=== PATIENT | male | born 1960 | race Caucasian/White ===

== ENCOUNTER 2018-10-30 13:43 | Inpatient (IN) | payer BC, OTHER ==
--- NOTE | 2018-10-30 14:17 | PDOC ---
History of Present Illness - General Stated Complaint: SYNCOPE History Source: Care Provider, Family - History of Present Illness Initial Comments: 10/30/18 14:10 58 yo male witih h/o prior CVA, siezure disorder, here after having episode AMS in [employer], pt with slurred speech currently. history provided by his step daughter. states she was in laundromat with him, she went to bring mother to bathroom, and when came out found him slumped in chair, leaning on person next to him. no witnessed siezure activity. now drooling, and noted slurred speech. no recent c/o feeling headache, f/c normally speech is clear. happened just prior to arrival. tPA Exclusion Checklist 0-3hr - Time Elapsed Date last known well: 10/30/18 Time last known well: 14:00 Elaspsed time: Day(s) and 1 Hour(s) and 38 Minutes - Thrombolytic Therapy Candidate Is the patient eligible for Thrombolytic Therapy?: No - Exclusion Criteria 0-3hr SBP greater than 185 or DBP greater than 110mmHg despite tx: No Recent IC/spinal surgery,head trauma or stroke w/in last 3mo: No Hx of previous IC hemorrhage, IC neoplasm, AVM or aneurysm: No Active internal bleeding: No Blding diathesis(low plt ct, inc PTT,INR>1.7 or use of NOAC): No Symptoms suggest subarachnoid hemorrhage: No CT demonstrates multilobar infarct(>1/3 cerebral hemiphere): No Arterial puncture at noncompressible site in previous 7 days: No Blood glucose concentration less than 50mg/dL (2.7mmol/L): No - Relative Exclusion Criteria 0-3h Life expectancy <1yr/severe co-morbid illness/MOBILE UNIT ASSISTANT on admit: No : No Patient/family refused: No Rapid improvement: Yes Stroke severity too mild: No Recent acute ID (w/in previous 3 months): No Seizure at onset with postictal residual neuro impairments: No Major surgery or serious trauma w/in previous 14 days: No Recent GI or hemorrhage (w/in previous 21 days): No - Ineligibility reason(s) Reasons No tPA given: See reason(s) noted above (pt exam rapidly improving. baseline disorientation and right sided weakness ( old)) NIH Stroke Scale - Last Known Well Date/Time & Onset Date Last Known Well: 10/30/18 Time Last Known Well: 14:00 - Initial Evaluation Level of consciousness: Not alert, but arousable with minimal stimulation Ask patient the month and their age: Answers one correctly (baseline doesnt know date) Ask patient to open & close eyes; make fist and let go: Obeys both correctly Best gaze (horizontal eye movement): Normal Visual field testing: No visual field loss Facial paresis (Show teeth/raise eyebrows/close eyes tight): Minor paralysis ( flattened nasolabial fold, asymmetry on smiling) (right facial droop) Motor Function: Left Arm: Normal Motor Function: Right Arm: Normal (extends arm 90 (or 45) degrees for 10 seconds without drift Motor Function: Left Leg: Normal (extends leg 30 degrees for 5 seconds without drift) Motor Function: Right Leg: Drift Limb Ataxia: No ataxia Sensory(Use pinprick test arms,legs,trunk,face/side to side): Normal Best language (Describe picture, name items, read sentences): Mild to moderate aphasia Dysarthria (read several words): Mild to moderate slurring of words Extinction and Inattention: No abnormality - Total Score NIH Stroke Scale Score: 6 Past History - Past Medical History Allergies/Adverse Reactions: Allergies Allergy/AdvReac Type Severity Reaction Status Date / Time Penicillins Allergy Severe Difficulty Verified 10/30/18 14:35 Breathing Review of Systems - Review of Systems Able to Perform ROS?: No (slurred speech, AMS) *Physical Exam - Physical Exam Comments: 10/30/18 14:12 awake , but drowsy. drooling. right facial droop noted. lungs clear bilaterlly heart rrr no mrg abd soft nt nd. ext cool clammy, nuero slurred speech, right facial droop. follows commands. answer one question correctly. arms no drift ( but righ tsided weakness when compared to left ) right leg with drift does not hit bed. speech slurred. ED Treatment Course - LABORATORY CBC & Chemistry Diagram: 10/30/18 14:25 10/30/18 14:25 - ADDITIONAL ORDERS Additional order review: Laboratory Results 10/30/18 13:57 POC Glucometer 108 10/30/18 13:57 POC Glucometer 108 - RADIOLOGY Radiology Studies Ordered: Category Date Time Status HEAD CT (STROKE) [CT] Stat CT Scan 10/30/18 13:58 Taken CHEST X-RAY PORTABLE* [RAD] Stat Radiology 10/30/18 14:00 Ordered Medical Decision Making - Medical Decision Making 10/30/18 14:14 58 yo h/o cva, siezure, here with ams, differential includes seizure, cva, syncope. sespsis. intox . plan labs ct head r/o ich cva. cxr ekg iv hydration. possible postictal states, mildly improving while in ED. glucose >100. code stroke called. pt not TPA candidate due to improving exam. h/o prior cva. 10/30/18 15:24 pt physicial exam and alertness improving in ed. still has slurred speech per family. h/o old right sided weakness per pt at bedside. pt recently moved to [place] from [facility]. Chief Substation Operator there was Dr Cordero at [facility] [phone], and nuerologist was Dr Alford) home meds simvstatin 20 lisinopril 5 keppra 1500mg BID asa 81 folic acid pt not tpa candidate as rapidly improving. concern for possible TIA vs. syncope and / seizure. pt hypotensive on EMT arrival. now bp improved leaning toward syncopal event. pt has been complaining of right hand pain. noted eccymosis right hand. will obtain right hand xray r/o fx. denies taking pain medication priro to episode. *DC/Admit/Observation/Transfer Diagnosis at time of Disposition: Syncope - Discharge Dispostion Decision to Admit order: Yes - Referrals - Patient Instructions - Post Discharge Activity
[2018-10-30] MEDS: SODIUM CHLORIDE 1,000 ML IV SCH (14:24)
[2018-10-30 14:47] LABS: BASO % 1.9 % (0-2.0); EOS % 1.5 % (0-4.5); HEMATOCRIT 30.2 % (35.4-49); HEMOGLOBIN 9.8 GM/dL (11.7-16.9); LYMPH % 17.2 % (8-40); MCH 25.7 pg (25.7-33.7); MCHC 32.4 g/dl (32.0-35.9); MEAN CELL VOLUME 79.4 fl (80-96); MEAN PLT VOLUME 7.4 fl (7.5-11.1); MONO % 6.9 % (3.8-10.2); NEUT % 72.5 % (42.8-82.8); PLATELET COUNT 258 K/MM3 (134-434); RBC 3.81 M/mm3 (4.00-5.60); WHITE BLOOD COUNT 5.3 K/mm3 (4.0-10.0)
[2018-10-30 14:53] LABS: INR 1.14 (0.83-1.09); PROTHROMBIN TIME (PATIENT) 13.5 SEC (9.7-13.0)
[2018-10-30 14:57] LABS: ALBUMIN 3.2 g/dl (3.4-5.0); ALK PHOS 54 U/L (45-117); ANION GAP 8 MMOL/L (8-16); BILIRUBIN,TOTAL 0.2 mg/dL (0.2-1); BLOOD UREA NITROGEN 9 mg/dL (7-18); CALCIUM 8.6 mg/dL (8.5-10.1); CHLORIDE 105 mmol/L (98-107); CHOLESTEROL 119 mg/dL (50-200); CO2 23 mmol/L (21-32); CREATININE 0.9 mg/dL (0.55-1.3); GLUCOSE,RANDOM 103 mg/dL (74-106); HDL CHOLESTEROL 42 mg/dL (40-60); SGOT/AST 18 U/L (15-37); SGPT/ALT 12 U/L (13-61); SODIUM 136 mmol/L (136-145); TOT PROT 6.8 g/dl (6.4-8.2); TRIGLYCERIDES 66 mg/dL (0-150)
--- NOTE | 2018-10-30 15:00 | EKG ---
Test Reason : Blood Pressure : / mmHG Vent. Rate : 083 BPM Atrial Rate : 083 BPM P-R Int : 238 ms QRS Dur : 086 ms QT Int : 408 ms P-R-T Axes : 002 015 010 degrees QTc Int : 479 ms Atrial-paced rhythm with prolonged AV conduction INFERIOR INFARCT , AGE UNDETERMINED ABNORMAL ECG NO PREVIOUS ECGS AVAILABLE Confirmed by BARBARA BURGOS MD ([id number]) on 10/30/2018 2:59:58 PM Referred By: Confirmed By:BARBARA BURGOS MD
[2018-10-30] MEDS ORDERED: SODIUM CHLORIDE 0.9% 1000 ML INFUS.BAG IV ONE (15:30)
--- NOTE | 2018-10-30 15:58 | HP ---
CHIEF COMPLAINT:AMS/Slurred speech PCP: [facility] HPI is from ER staff as patient is unable to give at this time and unable to reach family HISTORY OF PRESENT ILLNESS: 58yo M with PMH seizure with residual R sided weakness, s/p PPM HTN and seizure presented to the ER after he was found slumped over in a chair at the [facility]. he was with his step-daughter who left to take her mother to the bathroom and when she returned he was slumped over in the chair. Initially unresponsive and then became alert. +drooling with slurred speech. no seizure activity noted pt is unclear why he is in the hospital and can not recall the last thing he remembers. states he does not think he took his medications today. unaware of his medical problems ER course was notable for: (1)NIHH 4 (2)Head CT (3) Recent Travel:just moved from [place] PAST MEDICAL HISTORY:as stated above PAST SURGICAL HISTORY:unknown Social History:unknown Smoking: Alcohol: Drugs: Family History:unknown Allergies Penicillins Allergy (Severe, Verified 10/30/18 14:35) Difficulty Breathing HOME MEDICATIONS: REVIEW OF SYSTEMS CONSTITUTIONAL: Absent: fever, chills, diaphoresis, generalized weakness, malaise, loss of appetite, weight change HEENT: Absent: rhinorrhea, nasal congestion, throat pain, throat swelling, difficulty swallowing, mouth swelling, ear pain, eye pain, visual changes CARDIOVASCULAR: Absent: chest pain, syncope, palpitations, irregular heart rate, lightheadedness , peripheral edema RESPIRATORY: Absent: cough, shortness of breath, dyspnea with exertion, orthopnea, wheezing, stridor, hemoptysis GASTROINTESTINAL: Absent: abdominal pain, abdominal distension, nausea, vomiting, diarrhea, constipation, melena, hematochezia GENITOURINARY: Absent: dysuria, frequency, urgency, hesitancy, hematuria, flank pain, genital pain MUSCULOSKELETAL: Absent: myalgia, arthralgia, joint swelling, back pain, neck pain SKIN: Absent: rash, itching, pallor HEMATOLOGIC/IMMUNOLOGIC: Absent: easy bleeding, easy bruising, lymphadenopathy, frequent infections ENDOCRINE: Absent: unexplained weight gain, unexplained weight loss, heat intolerance, cold intolerance NEUROLOGIC: mental status changes Absent: headache, focal weakness or paresthesias, dizziness, unsteady gait, seizure,, bladder or bowel incontinence PSYCHIATRIC: Absent: anxiety, depression, suicidal or homicidal ideation, hallucinations. PHYSICAL EXAMINATION Vital Signs - 24 hr 10/30/18 10/30/18 10/30/18 13:45 14:00 14:35 Temperature 97.1 F L Pulse Rate 73 Pulse Rate [ 84 Right] Respiratory 18 18 Rate Blood Pressure 92/71 Blood Pressure 104/72 [Right Arm] O2 Sat by Pulse 98 98 98 Oximetry (%) GENERAL: A&O x2 (self and location), in no acute distress. HEAD: Normal with no signs of trauma. EYES: Pupils equal, round and reactive to light, extraocular movements intact, sclera anicteric, conjunctiva clear. No lid lag. EARS, NOSE, THROAT: Ears normal, nares patent, oropharynx clear without exudates. Moist mucous membranes. poor oral dentition NECK: Normal range of motion, supple without lymphadenopathy, JVD, or masses. LUNGS: Breath sounds equal, clear to auscultation bilaterally. No wheezes, and no crackles. No accessory muscle use. HEART: Regular rate and rhythm, normal S1 and S2 without murmur, rub or gallop. ABDOMEN: Soft, nontender, not distended, normoactive bowel sounds, no guarding, no rebound, no masses. No hepatomegaly or splenomegaly. MUSCULOSKELETAL: Normal range of motion at all joints. No bony deformities or tenderness. No CVA tenderness. UPPER EXTREMITIES: 2+ pulses, warm, well-perfused. No cyanosis. No clubbing. No peripheral edema. LOWER EXTREMITIES: 2+ pulses, warm, well-perfused. No calf tenderness. No peripheral edema. NEUROLOGICAL: Cranial nerves II-XII intact. +asymmetric smile with nasolabrial flattening. slurred speech strength 4/5 RUE 5/5 all remaining extremities sensation grossly intact. neg pronator drift/dysmetria. gait testing deferred PSYCHIATRIC: Cooperative. Good eye contact. Appropriate mood and affect. SKIN: Warm, dry, normal turgor, no rashes or lesions noted, normal capillary refill. Laboratory Results - last 24 hr 10/30/18 10/30/18 10/30/18 13:57 14:25 14:25 WBC 5.3 RBC 3.81 L Hgb 9.8 L Hct 30.2 L MCV 79.4 L MCH 25.7 MCHC 32.4 RDW 19.0 H Plt Count 258 MPV 7.4 L Absolute Neuts (auto) 3.9 Neutrophils % 72.5 Lymphocytes % 17.2 Monocytes % 6.9 Eosinophils % 1.5 Basophils % 1.9 Nucleated RBC % 0 PT with INR 13.50 H INR 1.14 H Sodium Potassium Chloride Carbon Dioxide Anion Gap BUN Creatinine Creat Clearance w eGFR POC Glucometer 108 Random Glucose Calcium Total Bilirubin AST ALT Alkaline Phosphatase Creatine Kinase Troponin I Total Protein Albumin Triglycerides Cholesterol Total LDL Cholesterol HDL Cholesterol 10/30/18 14:25 WBC RBC Hgb Hct MCV MCH MCHC RDW Plt Count MPV Absolute Neuts (auto) Neutrophils % Lymphocytes % Monocytes % Eosinophils % Basophils % Nucleated RBC % PT with INR INR Sodium 136 Potassium 5.0 Chloride 105 Carbon Dioxide 23 Anion Gap 8 BUN 9 Creatinine 0.9 Creat Clearance w eGFR > 60 POC Glucometer Random Glucose 103 Calcium 8.6 Total Bilirubin 0.2 AST 18 ALT 12 L Alkaline Phosphatase 54 Creatine Kinase 62 Troponin I < 0.02 Total Protein 6.8 Albumin 3.2 L Triglycerides 66 Cholesterol 119 Total LDL Cholesterol 65 HDL Cholesterol 42 ASSESSMENT/PLAN: 58yo M with PMH seizure with residual R sided weakness, HTN and seizure presented to the ER after he was found slumped over in a chair at the [facility]. Julia aBshir initiated in the ER with [facility] 4. Not a TPA candidate as symptoms resolved prior to arrival to the ER 1. Acute metabolic toxic encephalopathy- R/o CVA vs syncope vs seizure. unclear at this time until collateral information can be obtained. Julia bashir called and workup to be completed. unable to obtain MRI due to PPM (unclear indication). repeat Head CT at 24H, echo, carotid doppler. NPO until cleared by swallow therapist, Neuro consulted, was on asa at home, will need to verify if he was taking. switched low dose statin to high intensity. cont keppra. fall and seziure precautions. PT eval. may require SASHA 2. Microcytic anemia- no baseline available. will repeat in AM, check iron studies. no signs of bleeding. no indication for transfusions at this time 3. HTN- was hypotensive on arrival SBP 60's. currently normotensive. IVF given in the ER. will hold antihypertensives at this time 4. s/p PPM- unclear etiology 5. DVT ppx- lovenox 6. Called placed out to step-daughter for collateral information with no response, will attempt later. [phone] Visit type - Emergency Visit Emergency Visit: Yes Care time: The patient presented to the Emergency Department on the above date and was hospitalized for further evaluation of their emergent condition. - New Patient This patient is new to me today: Yes Date on this admission: 10/30/18 - Critical Care Critical Care patient: No
[2018-10-30] MEDS: ROSUVASTATIN CA 20 MG TABLET (FP) PO SCH (23:52)
[2018-10-31 01:21] VITALS: BMI 23.8
[2018-10-31] MEDS: ENOXAPARIN NA (PORCINE) 40 MG/0.4 ML DISP.SYRIN SQ SCH (09:32)
[2018-10-31 09:59] LABS: BASO % 1.4 % (0-2.0); EOS % 2.1 % (0-4.5); HEMATOCRIT 30.8 % (35.4-49); HEMOGLOBIN 10.3 GM/dL (11.7-16.9); LYMPH % 20.1 % (8-40); MCH 26.5 pg (25.7-33.7); MCHC 33.4 g/dl (32.0-35.9); MEAN CELL VOLUME 79.5 fl (80-96); MEAN PLT VOLUME 8.1 fl (7.5-11.1); MONO % 8.5 % (3.8-10.2); NEUT % 67.9 % (42.8-82.8); PLATELET COUNT 267 K/MM3 (134-434); RBC 3.87 M/mm3 (4.00-5.60); RDW 18.4 % (11.9-15.9); WHITE BLOOD COUNT 3.9 K/mm3 (4.0-10.0)
--- NOTE | 2018-10-31 10:26 | CONSULT ---
Consult - text type - Consultation Consultation Note: Neurology CHIEF COMPLAINT:AMS/Slurred speech PCP: [facility] HISTORY OF PRESENT ILLNESS: 58yo M with PMH seizure with residual R sided weakness, s/p PPM, HTN and seizure presented to the ER after he was found slumped over in a chair at the [facility] on day of admission. He was with his step-daughter who left to take her mother to the bathroom and when she returned, he was slumped over in the chair. Initially, patient was unresponsive and then became alert with symptoms of slurred speech and drooling. No seizure activity was noted. Code Bashir initiated in the ER with [facility] 4. Contact by ER. Patient was not a TPA candidate as symptoms resolved prior to arrival to the ER. Initially, patient unclear why he was in the hospital and can not recall the last thing he remembers. He states he did not think he took his medications on day of admission and was unaware of his medical problems. CT head was completed and did not show acute changes. He was admitted for futher eval, repeat CT head for this AM pending. No new deficits overnight. Recent Travel:just moved from [place] PAST MEDICAL HISTORY:as stated above PAST SURGICAL HISTORY:unknown Social History:unknown Smoking: Alcohol: Drugs: Family History:unknown Allergies Penicillins Allergy (Severe, Verified 10/30/18 14:35) Difficulty Breathing Active Medications Enoxaparin Sodium (Lovenox -) 40 mg SQ DAILY [facility] Last Admin: 10/31/18 09:32 Dose: 40 mg Sodium Chloride (Normal Saline -) 1,000 mls @ 42 mls/hr IV ASDIR [facility] Last Admin: 10/30/18 14:24 Dose: 42 mls/hr Rosuvastatin Calcium (Crestor -) 20 mg PO HS [facility] Last Admin: 10/30/18 23:52 Dose: Not Given REVIEW OF SYSTEMS CONSTITUTIONAL: Absent: fever, chills, diaphoresis, generalized weakness, malaise, loss of appetite, weight change HEENT: Absent: rhinorrhea, nasal congestion, throat pain, throat swelling, difficulty swallowing, mouth swelling, ear pain, eye pain, visual changes CARDIOVASCULAR: Absent: chest pain, syncope, palpitations, irregular heart rate, lightheadedness , peripheral edema RESPIRATORY: Absent: cough, shortness of breath, dyspnea with exertion, orthopnea, wheezing, stridor, hemoptysis GASTROINTESTINAL: Absent: abdominal pain, abdominal distension, nausea, vomiting, diarrhea, constipation, melena, hematochezia GENITOURINARY: Absent: dysuria, frequency, urgency, hesitancy, hematuria, flank pain, genital pain MUSCULOSKELETAL: Absent: myalgia, arthralgia, joint swelling, back pain, neck pain SKIN: Absent: rash, itching, pallor HEMATOLOGIC/IMMUNOLOGIC: Absent: easy bleeding, easy bruising, lymphadenopathy, frequent infections ENDOCRINE: Absent: unexplained weight gain, unexplained weight loss, heat intolerance, cold intolerance NEUROLOGIC: mental status changes Absent: headache, focal weakness or paresthesias, dizziness, unsteady gait, seizure,, bladder or bowel incontinence PSYCHIATRIC: Absent: anxiety, depression, suicidal or homicidal ideation, hallucinations. PHYSICAL EXAMINATION Vital Signs Temperature 98.2 F 10/31/18 08:59 Pulse Rate 79 10/31/18 08:59 Respiratory Rate 16 10/31/18 08:59 Blood Pressure 136/87 10/31/18 08:59 O2 Sat by Pulse Oximetry (%) 98 10/30/18 23:00 GENERAL: A&O x2 (self and location), in no acute distress. HEAD: Normal with no signs of trauma. EYES: Pupils equal, round and reactive to light, extraocular movements intact, sclera anicteric, conjunctiva clear. No lid lag. EARS, NOSE, THROAT: Ears normal, nares patent, oropharynx clear without exudates. Moist mucous membranes. poor oral dentition NECK: Normal range of motion, supple without lymphadenopathy, JVD, or masses. LUNGS: Breath sounds equal, clear to auscultation bilaterally. No wheezes, and no crackles. No accessory muscle use. HEART: Regular rate and rhythm, normal S1 and S2 without murmur, rub or gallop. ABDOMEN: Soft, nontender, not distended, normoactive bowel sounds, no guarding, no rebound, no masses. No hepatomegaly or splenomegaly. MUSCULOSKELETAL: Normal range of motion at all joints. No bony deformities or tenderness. No CVA tenderness. UPPER EXTREMITIES: 2+ pulses, warm, well-perfused. No cyanosis. No clubbing. No peripheral edema. LOWER EXTREMITIES: 2+ pulses, warm, well-perfused. No calf tenderness. No peripheral edema. NEUROLOGICAL: Cranial nerves II-XII intact. +asymmetric smile with nasolabrial flattening. slurred speech strength 4/5 RUE 5/5 all remaining extremities sensation grossly intact. neg pronator drift/dysmetria. gait testing deferred PSYCHIATRIC: Cooperative. Good eye contact. Appropriate mood and affect. SKIN: Warm, dry, normal turgor, no rashes or lesions noted, normal capillary refill. CBCD WBC 3.9 K/mm3 (4.0-10.0) L 10/31/18 06:15 RBC 3.87 M/mm3 (4.00-5.60) L 10/31/18 06:15 Hgb 10.3 GM/dL (11.7-16.9) L 10/31/18 06:15 Hct 30.8 % (35.4-49) L 10/31/18 06:15 MCV 79.5 fl (80-96) L 10/31/18 06:15 MCHC 33.4 g/dl (32.0-35.9) 10/31/18 06:15 RDW 18.4 % (11.9-15.9) H 10/31/18 06:15 Plt Count 267 K/MM3 (134-434) 10/31/18 06:15 MPV 8.1 fl (7.5-11.1) 10/31/18 06:15 CMP Sodium 136 mmol/L (136-145) 10/30/18 14:25 Potassium 5.0 mmol/L (3.5-5.1) 10/30/18 14:25 Chloride 105 mmol/L (98-107) 10/30/18 14:25 Carbon Dioxide 23 mmol/L (21-32) 10/30/18 14:25 Anion Gap 8 MMOL/L (8-16) 10/30/18 14:25 BUN 9 mg/dL (7-18) 10/30/18 14:25 Creatinine 0.9 mg/dL (0.55-1.3) 10/30/18 14:25 Creat Clearance w eGFR > 60 (>60) 10/30/18 14:25 Random Glucose 103 mg/dL (74-106) 10/30/18 14:25 Calcium 8.6 mg/dL (8.5-10.1) 10/30/18 14:25 Total Bilirubin 0.2 mg/dL (0.2-1) 10/30/18 14:25 AST 18 U/L (15-37) 10/30/18 14:25 ALT 12 U/L (13-61) L 10/30/18 14:25 Alkaline Phosphatase 54 U/L (45-117) 10/30/18 14:25 Total Protein 6.8 g/dl (6.4-8.2) 10/30/18 14:25 Albumin 3.2 g/dl (3.4-5.0) L 10/30/18 14:25 CARDIAC ENZYMES Creatine Kinase 29 U/L (26-308) 10/30/18 21:07 Troponin I < 0.02 ng/ml (0.00-0.05) 10/30/18 21:[address] - pending Carotid Doppler - completed, results pending ASSESSMENT/PLAN: 58yo M with PMH seizure with residual R sided weakness, s/p PPM, HTN and seizure presented to the ER after he was found slumped over in a chair at the [facility] on day of admission. He was with his step-daughter who left to take her mother to the bathroom and when she returned, he was slumped over in the chair. Initially, patient was unresponsive and then became alert with symptoms of slurred speech and drooling. No seizure activity was noted. Julia Bashir initiated in the ER with [facility] 4. Contact by ER. Patient was not a TPA candidate as symptoms resolved prior to arrival to the ER. Initially, patient unclear why he was in the hospital and can not recall the last thing he remembers. He states he did not think he took his medications on day of admission and was unaware of his medical problems. CT head was completed and did not show acute changes. He was admitted for futher eval, repeat CT head for this AM pending. No new deficits overnight. Carotid doppler completed, awaiting offical report. On tele monitoring, hydration recommended. Monitor blood preussre, maintain normotensive range. Can continue home meds. DVT ppx.
[2018-10-31 10:52] LABS: ALK PHOS 55 U/L (45-117); ANION GAP 10 MMOL/L (8-16); BILIRUBIN,TOTAL 0.3 mg/dL (0.2-1); BLOOD UREA NITROGEN 9 mg/dL (7-18); CALCIUM 8.3 mg/dL (8.5-10.1); CHLORIDE 108 mmol/L (98-107); CO2 21 mmol/L (21-32); CREATININE 0.6 mg/dL (0.55-1.3); GLUCOSE,RANDOM 79 mg/dL (74-106); POTASSIUM 4.4 mmol/L (3.5-5.1); SGOT/AST 11 U/L (15-37); SGPT/ALT 11 U/L (13-61); SODIUM 138 mmol/L (136-145); TOT PROT 6.6 g/dl (6.4-8.2)
[2018-10-31] MEDS: SODIUM CHLORIDE 1,000 ML IV SCH (14:49)
--- NOTE | 2018-10-31 15:52 | PN ---
Physical Exam: SUBJECTIVE: Patient seen and examined he is better and alert and awake no more weakness or any seizure disorder OBJECTIVE: Vital Signs Period Temp Pulse Resp BP Sys/Evangelista Pulse Ox Last 24 Hr 97.4 F-98.5 F 72-89 16-20 131-158/78-93 98-100 GENERAL: The patient is awake, alert, and fully oriented, in no acute distress. HEAD: Normal with no signs of trauma. EYES: PERRL, extraocular movements intact, sclera anicteric, conjunctiva clear. No ptosis. ENT: Ears normal, nares patent, oropharynx clear without exudates, moist mucous membranes. NECK: Trachea midline, full range of motion, supple. LUNGS: Breath sounds equal, clear to auscultation bilaterally, no wheezes, no crackles, no accessory muscle use. HEART: Regular rate and rhythm, S1, S2 without murmur, rub or gallop. ABDOMEN: Soft, nontender, nondistended, normoactive bowel sounds, no guarding, no rebound, no hepatosplenomegaly, no masses. EXTREMITIES: 2+ pulses, warm, well-perfused, no edema. NEUROLOGICAL: Cranial nerves II through XII grossly intact. Normal speech, gait not observed.But has minimal rt sided weakness if any PSYCH: Normal mood, normal affect. SKIN: Warm, dry, normal turgor, no rashes or lesions noted Laboratory Results - last 24 hr 10/30/18 10/31/18 10/31/18 21:07 06:15 06:15 WBC 3.9 L RBC 3.87 L Hgb 10.3 L Hct 30.8 L MCV 79.5 L MCH 26.5 MCHC 33.4 RDW 18.4 H Plt Count 267 MPV 8.1 Absolute Neuts (auto) 2.7 Neutrophils % 67.9 Lymphocytes % 20.1 Monocytes % 8.5 Eosinophils % 2.1 Basophils % 1.4 Nucleated RBC % 0 Sodium 138 Potassium 4.4 Chloride 108 H Carbon Dioxide 21 Anion Gap 10 BUN 9 Creatinine 0.6 Creat Clearance w eGFR > 60 Random Glucose 79 Calcium 8.3 L Ferritin 13.3 Total Bilirubin 0.3 AST 11 L ALT 11 L Alkaline Phosphatase 55 Creatine Kinase 29 Troponin I < 0.02 Total Protein 6.6 Albumin 3.0 L Active Medications Generic Name Dose Route Start Last Admin Trade Name Freq PRN Reason Stop Dose Admin Enoxaparin Sodium 40 mg 10/31/18 10:00 10/31/18 09:32 Lovenox - SQ 40 mg DAILY [facility] Administration Sodium Chloride 1,000 mls @ 42 mls/hr 10/30/18 14:00 10/30/18 14:24 Normal Saline - IV 42 mls/hr ASDIR [facility] Administration Rosuvastatin Calcium 20 mg 10/30/18 22:00 10/30/18 23:52 Crestor - PO Not Given HS [facility] ASSESSMENT/PLAN: 58yo M with PMH HTN and seizure presented to the ER after he was found slumped over in a chair at the [facility]. 1. Acute metabolic toxic encephalopathy- R/o CVA vs syncope vs seizure. seen by neuro recomended to have ct head repeat and carotid sonogram and done and results are pending. He is much improved and he passed the bed side swallowing and will start on regular diet. 2. Microcytic anemia- no baseline available. will repeat in AM, check iron studies. no signs of bleeding. no indication for transfusions at this time 3. HTN- blood pressure is better now 4. s/p PPM- 5. DVT ppx- lovenox 6. Called step-daughter and for collateral information that he has just moved here from [place] and reason for pacemaker is unknown to them and patient Visit type - Emergency Visit Emergency Visit: Yes ED Registration Date: 10/30/18 Care time: The patient presented to the Emergency Department on the above date and was hospitalized for further evaluation of their emergent condition. - New Patient This patient is new to me today: Yes Date on this admission: 10/31/18 - Critical Care Critical Care patient: No - Discharge Referral Referred to [facility] No
[2018-10-31] MEDS: ROSUVASTATIN CA 20 MG TABLET (FP) PO SCH (21:06)
[2018-11-01] MEDS: SODIUM CHLORIDE 1,000 ML IV SCH ×2 (03:28→21:15)
[2018-11-01 08:08] LABS: SERUM IRON SATURATION 8 % (15-55); TOTAL IRON BINDING CAPACITY 315 ug/dL (250-450); UIBC 290 ug/dL (111-343)
[2018-11-01] MEDS: ENOXAPARIN NA (PORCINE) 40 MG/0.4 ML DISP.SYRIN SQ SCH (10:04)
--- NOTE | 2018-11-01 10:47 | PN ---
Progress Note (short form) - Note Progress Note: Neurology CHIEF COMPLAINT:AMS/Slurred speech PCP: [facility] HISTORY OF PRESENT ILLNESS: 58yo M with PMH seizure with residual R sided weakness, s/p PPM, HTN and seizure presented to the ER after he was found slumped over in a chair at the [facility] on day of admission. He was with his step-daughter who left to take her mother to the bathroom and when she returned, he was slumped over in the chair. Initially, patient was unresponsive and then became alert with symptoms of slurred speech and drooling. No seizure activity was noted. Code Bashir initiated in the ER with [facility] 4. Contact by ER. Patient was not a TPA candidate as symptoms resolved prior to arrival to the ER. Initially, patient unclear why he was in the hospital and can not recall the last thing he remembers. He stated he did not think he took his medications on day of admission and was unaware of his medical problems. CT head was completed and did not show acute changes. He was admitted for further eval, repeat CT head completed on 10/31/18, no acute changes noted but chronic infarcts. Carotid doppler reviewed and no high grade evidence of HD significant stenosis noted. No new deficits overnight. On statin but not on ASA for unclear reason. Based on imaging would recommend at least ASA 81mg unless contraindications. Allergies Penicillins Allergy (Severe, Verified 10/30/18 14:35) Difficulty Breathing Active Medications Enoxaparin Sodium (Lovenox -) 40 mg SQ DAILY [facility] Last Admin: 11/01/18 10:04 Dose: 40 mg Sodium Chloride (Normal Saline -) 1,000 mls @ 42 mls/hr IV ASDIR [facility] Last Admin: 11/01/18 03:28 Dose: 42 mls/hr Rosuvastatin Calcium (Crestor -) 20 mg PO HS [facility] Last Admin: 10/31/18 21:06 Dose: 20 mg PHYSICAL EXAMINATION Vital Signs Temperature 98.5 F 11/01/18 10:06 Pulse Rate 79 11/01/18 10:06 Respiratory Rate 18 11/01/18 10:06 Blood Pressure 110/59 L 11/01/18 10:06 O2 Sat by Pulse Oximetry (%) 98 10/31/18 19:51 GENERAL: A&O x2 (self and location), in no acute distress. HEAD: Normal with no signs of trauma. EYES: Pupils equal, round and reactive to light, extraocular movements intact, sclera anicteric, conjunctiva clear. No lid lag. EARS, NOSE, THROAT: Ears normal, nares patent, oropharynx clear without exudates. Moist mucous membranes. poor oral dentition NECK: Normal range of motion, supple without lymphadenopathy, JVD, or masses. LUNGS: Breath sounds equal, clear to auscultation bilaterally. No wheezes, and no crackles. No accessory muscle use. HEART: Regular rate and rhythm, normal S1 and S2 without murmur, rub or gallop. ABDOMEN: Soft, nontender, not distended, normoactive bowel sounds, no guarding, no rebound, no masses. No hepatomegaly or splenomegaly. MUSCULOSKELETAL: Normal range of motion at all joints. No bony deformities or tenderness. No CVA tenderness. UPPER EXTREMITIES: 2+ pulses, warm, well-perfused. No cyanosis. No clubbing. No peripheral edema. LOWER EXTREMITIES: 2+ pulses, warm, well-perfused. No calf tenderness. No peripheral edema. NEUROLOGICAL: Cranial nerves II-XII intact. +asymmetric smile with nasolabrial flattening. slurred speech strength 4/5 RUE 5/5 all remaining extremities sensation grossly intact. neg pronator drift/dysmetria. gait testing deferred PSYCHIATRIC: Cooperative. Good eye contact. Appropriate mood and affect. SKIN: Warm, dry, normal turgor, no rashes or lesions noted, normal capillary refill. CBCD WBC 3.9 K/mm3 (4.0-10.0) L 10/31/18 06:15 RBC 3.87 M/mm3 (4.00-5.60) L 10/31/18 06:15 Hgb 10.3 GM/dL (11.7-16.9) L 10/31/18 06:15 Hct 30.8 % (35.4-49) L 10/31/18 06:15 MCV 79.5 fl (80-96) L 10/31/18 06:15 MCHC 33.4 g/dl (32.0-35.9) 10/31/18 06:15 RDW 18.4 % (11.9-15.9) H 10/31/18 06:15 Plt Count 267 K/MM3 (134-434) 10/31/18 06:15 MPV 8.1 fl (7.5-11.1) 10/31/18 06:15 CMP Sodium 138 mmol/L (136-145) 10/31/18 06:15 Potassium 4.4 mmol/L (3.5-5.1) 10/31/18 06:15 Chloride 108 mmol/L (98-107) H 10/31/18 06:15 Carbon Dioxide 21 mmol/L (21-32) 10/31/18 06:15 Anion Gap 10 MMOL/L (8-16) 10/31/18 06:15 BUN 9 mg/dL (7-18) 10/31/18 06:15 Creatinine 0.6 mg/dL (0.55-1.3) 10/31/18 06:15 Creat Clearance w eGFR > 60 (>60) 10/31/18 06:15 Random Glucose 79 mg/dL (74-106) 10/31/18 06:15 Calcium 8.3 mg/dL (8.5-10.1) L 10/31/18 06:15 Total Bilirubin 0.3 mg/dL (0.2-1) 10/31/18 06:15 AST 11 U/L (15-37) L 10/31/18 06:15 ALT 11 U/L (13-61) L 10/31/18 06:15 Alkaline Phosphatase 55 U/L (45-117) 10/31/18 06:15 Total Protein 6.6 g/dl (6.4-8.2) 10/31/18 06:15 Albumin 3.0 g/dl (3.4-5.0) L 10/31/18 06:15 CARDIAC ENZYMES Creatine Kinase 29 U/L (26-308) 10/30/18 21:07 Troponin I < 0.02 ng/ml (0.00-0.05) 10/30/18 21:[address] (initial) - completed, reviewed Carotid Doppler - completed Head CT (repeat) - completed ASSESSMENT/PLAN: 58yo M with PMH seizure with residual R sided weakness, s/p PPM, HTN and seizure presented to the ER after he was found slumped over in a chair at the [facility] on day of admission. He was with his step-daughter who left to take her mother to the bathroom and when she returned, he was slumped over in the chair. Initially, patient was unresponsive and then became alert with symptoms of slurred speech and drooling. No seizure activity was noted. Julia Bashir initiated in the ER with [facility] 4. Contact by ER. Patient was not a TPA candidate as symptoms resolved prior to arrival to the ER. Initially, patient unclear why he was in the hospital and can not recall the last thing he remembers. He stated he did not think he took his medications on day of admission and was unaware of his medical problems. CT head was completed and did not show acute changes. Carotid doppler completed, awaiting official report. He was admitted for further eval, repeat CT head completed on 10/31/18, no acute changes noted. Carotid doppler reviewed and no high grade evidence of HD significant stenosis noted. No new deficits overnight. On tele monitoring, hydration recommended. Monitor blood pressure maintain normotensive range. On statin but not on ASA for unclear reason. Based on imaging would recommend at least ASA 81mg unless contraindications, will add to regiment. Can continue home meds. DVT ppx.
[2018-11-01] MEDS: ASPIRIN COATED 81 MG TABLET.EC PO SCH (13:56)
--- NOTE | 2018-11-01 14:46 | PN ---
Physical Exam: SUBJECTIVE: Patient seen and examined he is much better no distress eating well no nausea or vomiting OBJECTIVE: Vital Signs Period Temp Pulse Resp BP Sys/Evangelista Pulse Ox Last 24 Hr 97.4 F-98.5 F 70-79 18-20 100-138/59-86 98-98 GENERAL: The patient is awake, alert, and fully oriented, in no acute distress. HEAD: Normal with no signs of trauma. EYES: PERRL, extraocular movements intact, sclera anicteric, conjunctiva clear. No ptosis. ENT: Ears normal, nares patent, oropharynx clear without exudates, moist mucous membranes. NECK: Trachea midline, full range of motion, supple. LUNGS: Breath sounds equal, clear to auscultation bilaterally, no wheezes, no crackles, no accessory muscle use. HEART: Regular rate and rhythm, S1, S2 without murmur, rub or gallop. ABDOMEN: Soft, nontender, nondistended, normoactive bowel sounds, no guarding, no rebound, no hepatosplenomegaly, no masses. EXTREMITIES: 2+ pulses, warm, well-perfused, no edema. NEUROLOGICAL: alert and awake P Laboratory Results - last 24 hr 10/31/18 06:15 Iron 25 L TIBC 315 Iron Saturation 8 L Active Medications Generic Name Dose Route Start Last Admin Trade Name Philip PRN Reason Stop Dose Admin Aspirin 81 mg 11/01/18 12:30 11/01/18 13:56 Ecotrin - PO 81 mg DAILY [facility] Administration Enoxaparin Sodium 40 mg 10/31/18 10:00 11/01/18 10:04 Lovenox - SQ 40 mg DAILY [facility] Administration Sodium Chloride 1,000 mls @ 42 mls/hr 10/30/18 14:00 11/01/18 03:28 Normal Saline - IV 42 mls/hr ASDIR [facility] Administration Rosuvastatin Calcium 20 mg 10/30/18 22:00 10/31/18 21:06 Crestor - PO 20 mg HS [facility] Administration ASSESSMENT/PLAN: 58yo M with PMH HTN and seizure presented to the ER after he was found slumped over in a chair at the [facility]. 1. Acute metabolic toxic encephalopathy- R/o CVA vs syncope vs seizure. His mri of brain and carotid sono is normal and seen by neuro and started on aspirin. I started him on physical therapy 2. Microcytic anemia- better 3. HTN- blood pressure is controlled 4. DVT ppx- lovenox 5. Called step-daughter and for patient condition
[2018-11-01 16:44] LABS: URINE APPEARANCE CLEAR; URINE BILIRUBIN NEGATIVE (<2.0 mg/dL); URINE COLOR LTYELLOW; URINE GLUCOSE (UA) NEGATIVE (NEGATIVE); URINE KETONE NEGATIVE (NEGATIVE); URINE LEUK ESTERASE NEGATIVE (NEGATIVE); URINE NITRITE NEGATIVE (NEGATIVE); URINE PROTEIN NEGATIVE (NEGATIVE); URINE UROBILINOGEN NEGATIVE mg/dL (0.2-1.0)
[2018-11-01] MEDS: ROSUVASTATIN CA 20 MG TABLET (FP) PO SCH (21:14)
[2018-11-02] MEDS: ENOXAPARIN NA (PORCINE) 40 MG/0.4 ML DISP.SYRIN SQ SCH (09:14)
[2018-11-02] MEDS: ASPIRIN COATED 81 MG TABLET.EC PO SCH (09:14)
--- NOTE | 2018-11-02 10:24 | CONSULT ---
Admitting History and Physical - Primary Care Physician PCP: Kaci Tirado - Admission History of Present Illness: 58yo M with PMH HTN and seizure presented to the ER after he was found slumped over in a chair at the [facility]. Acute metabolic toxic encephalopathy- R/o CVA vs syncope vs seizure. mri of brain and carotid sono is normal and seen by neuro and started on aspirin. Selected Entries 10/30/18 10/30/18 10/30/18 13:45 22:21 23:00 Breakfast Lunch Supper Temperature 97.1 F L 98.5 F 97.4 F L 10/31/18 10/31/18 10/31/18 02:00 06:00 08:59 Breakfast Lunch Supper Temperature 97.7 F 97.4 F L 98.2 F 10/31/18 10/31/18 10/31/18 11:15 14:42 16:20 Breakfast 100% Lunch 75% Supper Temperature 97.4 F L 10/31/18 10/31/18 11/01/18 22:12 22:37 02:25 Breakfast Lunch Supper 75% Temperature 97.9 F 97.9 F 11/01/18 11/01/18 11/01/18 05:54 09:37 10:06 Breakfast 100% Lunch Supper Temperature 98.2 F 98.5 F 11/01/18 11/01/18 11/01/18 14:20 16:30 22:01 Breakfast Lunch 100% Supper Temperature 97.3 F L 97.4 F L 97.5 F L 11/01/18 11/02/18 11/02/18 23:12 02:06 06:00 Breakfast Lunch Supper 100% Temperature 98.1 F 97.6 F 11/02/18 08:07 Breakfast Lunch Supper Temperature 97.1 F L Laboratory Tests 10/30/18 10/31/18 14:25 06:15 WBC 5.3 3.9 L This is my first consultation with this pt. History Source: Patient, Medical Record Limitations to Obtaining History: Clinical Condition - Smoking History Smoking history: Unknown if ever smoked Have you smoked in the past 12 months: No - Alcohol/Substance Use Hx Alcohol Use: No History - Admission Reason For Visit: SYNCOPE - Diagnostics X-ray: Report Reviewed CT Scan: Report Reviewed - General Mental Status: Awake and Alert, Able to Follow Commands, Forgetful, Vague, Confused (Impaired memory,insight and orientation.), Flat Affect Attention: Intact Ability to Follow Directions: Good Head/Neck Control: WFL - Hearing Hearing: Normal Hearing Aide: No Speech Evaluation - Communication Primary Language: MONGOLIAN Communication: Yes: Dysarthria Oral Expression Ability: Yes: Mild Impairment - Speech Production Intelligibility: Yes: Mildly Impaired - Speech Characteristics Voice Loudness: Normal Voice Pitch: Yes: Normal Voice Phonatory-based Quality: Yes: Normal Speech Pattern: Impaired Speech Clarity: < 75% Nasal Resonance: Normal Articulation: Yes: Imprecise Rate of Speech: Too Slow - Language/Auditory Comprehension Follows: Yes: 1 Stage Simple Commands Observation: Able to respond to yes/no queries: Yes, Yes/No Confusion: No, Comprehends Conversational Speech: Yes - Language/Verbal Expression Able to Communicate Wants and Needs: Yes: WNL - Swallow Evaluation/Bedside Assessment Current Nutritional Intake: Regular, Thin Liquids Oral Secretions: Yes: WFL Dentition: Yes: Edentulous (upper), Missing Teeth (dental roots anteriorally) Facial Symmetry at Rest: Symmetrical Facial Symmetry on Retraction: Symmetrical Lingual Movement: Symmetric Lingual Speed of Movement: Reduced Lingual Movement Strgth Against Opposition: Reduced Velopharyngeal Movement: Normal Laryngeal Movement: Able to Palpate Rate of Intake: WFL Bolus Size: WFL Labial Seal: WFL Chewing: Impaired Oral Prep Time: WFL A-P Transit: WFL Coughing/Throat Clear: No Change in Voice: No Recommendations - Speech Evaluation, Impression/Plan Impression: Dysarthria, impaired cognition,poor dentition with impaired mastication. Needs cut up/assistance with meals. - Disposition Discharge to: Shelter Facility, To be Determined - Dysphagia Impressions/Plan Dysphagia Impressions: Mild Impairment *Silent aspiration: cannot be R/O at bedside Dysphagia Treatment Plan: Small Bites, Chin Tuck/Down, Clear Pocket Food, Safe Rate, 1/2 tsp. at a time, Elevate HOB during feed - Recommendations Diet Consistency: Dysphagia Whole (chopped meat, extra gravy) Liquids: Thin Liquids Supplement: Ensure, Magic Cup
--- NOTE | 2018-11-02 15:57 | PN ---
Physical Exam: SUBJECTIVE: Patient seen and examined. He has no complaints at this time OBJECTIVE: Vital Signs Period Temp Pulse Resp BP Sys/Evangelista Pulse Ox Last 24 Hr 97.1 F-98.1 F 71-84 18-20 100-149/67-97 97-98 GENERAL: The patient is awake, alert, and fully oriented, in no acute distress. HEAD: Normal with no signs of trauma. EYES: PERRL, extraocular movements intact, sclera anicteric, conjunctiva clear. No ptosis. ENT: Ears normal, nares patent, oropharynx clear without exudates, moist mucous membranes. NECK: Trachea midline, full range of motion, supple. LUNGS: Breath sounds equal, clear to auscultation bilaterally, no wheezes, no crackles, no accessory muscle use. HEART: Regular rate and rhythm, S1, S2 without murmur, rub or gallop. ABDOMEN: Soft, nontender, nondistended, normoactive bowel sounds, no guarding, no rebound, no hepatosplenomegaly, no masses. EXTREMITIES: 2+ pulses, warm, well-perfused, no edema. NEUROLOGICAL: Cranial nerves II through XII grossly intact. Normal speech, gait not observed. PSYCH: Normal mood, normal affect. SKIN: Warm, dry, normal turgor, no rashes or lesions noted Laboratory Results - last 24 hr 11/01/18 07:00 Urine Color Ltyellow Urine Appearance Clear Urine pH 5.0 Ur Specific Given 1.010 Urine Protein Negative Urine Glucose (UA) Negative Urine Ketones Negative Urine Blood Negative Urine Nitrite Negative Urine Bilirubin Negative Urine Urobilinogen Negative Ur Leukocyte Esterase Negative Active Medications Generic Name Dose Route Start Last Admin Trade Name Philip PRN Reason Stop Dose Admin Aspirin 81 mg 11/01/18 12:30 11/02/18 09:14 Ecotrin - PO 81 mg DAILY [facility] Administration Enoxaparin Sodium 40 mg 10/31/18 10:00 11/02/18 09:14 Lovenox - SQ 40 mg DAILY [facility] Administration Rosuvastatin Calcium 20 mg 10/30/18 22:00 11/01/18 21:14 Crestor - PO 20 mg HS [facility] Administration ASSESSMENT/PLAN: 58yo M with PMH seizure with residual R sided weakness, s/p PPM HTN and seizure presented to the ER after he was found slumped [facility] in a [facility]. he was with his step-daughter who left to take her mother to the bathroom and when she returned he was slumped over in the chair. Initially unresponsive and then became alert. +drooling with slurred speech. no seizure activity noted
[2018-11-02] MEDS: ROSUVASTATIN CA 20 MG TABLET (FP) PO SCH (21:19)
[2018-11-03] MEDS ORDERED: levETIRAcetam 500 MG/5 ML INJECTION VIAL IVPB ONE (05:52)
--- NOTE | 2018-11-03 06:04 | RAPID ---
Physical Examination Vital Signs: Vital Signs Temperature 97.7 F 11/03/18 02:00 Pulse Rate 86 11/03/18 02:00 Respiratory Rate 20 11/03/18 02:00 Blood Pressure 135/91 11/03/18 02:00 O2 Sat by Pulse Oximetry (%) 96 11/02/18 19:50 Labs: CBC, BMP 10/31/18 06:15 10/31/18 06:15 Rapid Response - Rapid Response Assessment: Rapid response called at 5:43. As per nursing, patient was noted to be tachycardic on tele. When they came to the room, patient was having an episode of generalized tonic clonic seizure that lasted <1minute. It was his 2nd episode within the past 3 hours. Upon arrival of the team, patient was post- ictal. General: awake, eyes open, does not follow commands, drooling VS: BP 165/95 HR 124 sat 99% room air Heart: tachycardic, no murmurs Lungs: CTA bilaterally Abdomen: soft, nontender, NABS Ext: no peripheral edema, +2 pulses Neuro: post-ictal Glu 114 Patient has not been on his home dose of Keppra. Will give Keppra 1gm IV now Will continue Keppra 500mg bid starting tomorrow. CBC CMP Mg Phos EEG Will sign out to the day team. Consult neuro.
[2018-11-03 07:41] LABS: BASO % 0.5 % (0-2.0); EOS % 1.2 % (0-4.5); HEMATOCRIT 28.5 % (35.4-49); HEMOGLOBIN 9.8 GM/dL (11.7-16.9); LYMPH % 14.6 % (8-40); MCH 26.3 pg (25.7-33.7); MCHC 34.2 g/dl (32.0-35.9); MEAN CELL VOLUME 76.7 fl (80-96); MEAN PLT VOLUME 8.2 fl (7.5-11.1); MONO % 6.2 % (3.8-10.2); NEUT % 77.5 % (42.8-82.8); PLATELET COUNT 251 K/MM3 (134-434); RBC 3.72 M/mm3 (4.00-5.60); RDW 18.4 % (11.9-15.9); WHITE BLOOD COUNT 6.7 K/mm3 (4.0-10.0)
[2018-11-03 08:16] LABS: ALBUMIN 3.1 g/dl (3.4-5.0); ALK PHOS 62 U/L (45-117); ANION GAP 11 MMOL/L (8-16); BILIRUBIN,TOTAL 0.2 mg/dL (0.2-1); BLOOD UREA NITROGEN 10 mg/dL (7-18); CHLORIDE 95 mmol/L (98-107); CO2 21 mmol/L (21-32); CREATININE 0.8 mg/dL (0.55-1.3); GLUCOSE,RANDOM 101 mg/dL (74-106); MAGNESIUM 1.5 mg/dL (1.8-2.4); PHOSPHOROUS 3.8 mg/dL (2.5-4.9); POTASSIUM 3.8 mmol/L (3.5-5.1); SGOT/AST 12 U/L (15-37); SGPT/ALT 11 U/L (13-61); SODIUM 128 mmol/L (136-145)
[2018-11-03] MEDS ORDERED: MAGNESIUM SULF 50% (8.12 MEQ/2 ML-1 GM VIAL) IVPB ONE (08:30)
--- NOTE | 2018-11-03 08:37 | PN ---
Physical Exam: SUBJECTIVE: Patient seen and examined at the bedside. sitting up in bed having breakfast. tells me he has seizures on and off at home, does not remember having a seizure today. has a mild headache. OBJECTIVE: rapid response this a.m., keppra loading dose given. keppra 500mg bid IV, will convert to PO as patient is able to swallow meds sodium dropped 10 points in 2 days. will repeat labs at 12. Vital Signs Period Temp Pulse Resp BP Sys/Evangelista Pulse Ox Last 24 Hr 96.5 F-98.1 F 69-86 18-20 100-135/67-91 96-97 GENERAL: The patient is awake, alert, forgetfull. unsure if his mentation is at his baseline. HEAD: Normal with no signs of trauma. EYES: PERRL, extraocular movements intact, sclera anicteric, conjunctiva clear. No ptosis. ENT: Ears normal, nares patent, oropharynx clear without exudates, moist mucous membranes. NECK: Trachea midline, full range of motion, supple. HEART: Regular rate and rhythm,90s - tachy 140s this morning at 5am ABDOMEN: Soft, nontender, nondistended, normoactive bowel sounds, no guarding, no rebound, no hepatosplenomegaly, no masses. EXTREMITIES: no edema. NEUROLOGICAL: Normal speech, upper ext weakness, right>left PSYCH: Normal mood, normal affect. SKIN: Warm, dry, normal turgor, no rashes or lesions noted Laboratory Results - last 24 hr 11/03/18 11/03/18 11/03/18 02:44 05:47 06:00 WBC 6.7 RBC 3.72 L Hgb 9.8 L Hct 28.5 L MCV 76.7 L MCH 26.3 MCHC 34.2 RDW 18.4 H Plt Count 251 MPV 8.2 Absolute Neuts (auto) 5.2 Neutrophils % 77.5 Lymphocytes % 14.6 D Monocytes % 6.2 Eosinophils % 1.2 Basophils % 0.5 Nucleated RBC % 0 Sodium Potassium Chloride Carbon Dioxide Anion Gap BUN Creatinine Creat Clearance w eGFR POC Glucometer 124 114 Random Glucose Calcium Phosphorus Magnesium Total Bilirubin AST ALT Alkaline Phosphatase Total Protein Albumin 11/03/18 06:00 WBC RBC Hgb Hct MCV MCH MCHC RDW Plt Count MPV Absolute Neuts (auto) Neutrophils % Lymphocytes % Monocytes % Eosinophils % Basophils % Nucleated RBC % Sodium 128 L Potassium 3.8 Chloride 95 L Carbon Dioxide 21 Anion Gap 11 BUN 10 Creatinine 0.8 Creat Clearance w eGFR > 60 POC Glucometer Random Glucose 101 Calcium 8.0 L Phosphorus 3.8 Magnesium 1.5 L Total Bilirubin 0.2 AST 12 L ALT 11 L Alkaline Phosphatase 62 Total Protein 7.0 Albumin 3.1 L Active Medications Generic Name Dose Route Start Last Admin Trade Name Freq PRN Reason Stop Dose Admin Aspirin 81 mg 11/01/18 12:30 11/02/18 09:14 Ecotrin - PO 81 mg DAILY [facility] Administration Enoxaparin Sodium 40 mg 10/31/18 10:00 11/02/18 09:14 Lovenox - SQ 40 mg DAILY [facility] Administration Levetiracetam 500 mg 11/03/18 10:00 Keppra Injection - IVPB BID [facility] Rosuvastatin Calcium 20 mg 10/30/18 22:00 11/02/18 21:19 Crestor - PO 20 mg HS [facility] Administration ASSESSMENT/PLAN: Patient is a 58 year old male with a significant past medical history of 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 He presented to the ER after he was found slumped over in a chair at the [facility] , was initially unresponsive and then became alert. +drooling with slurred speech. A code osman was initiated in the Ed. He was not a Tpa candidate as symptoms resolved prior to arrival to the ED. Neuro: Acute metabolic enceph. secondary to seizure vs. CVa. Mental status improving and appears to be at his baseline. He is unable to get an mri of brain 2/2 to ppm. Neuro consulted and following. Head CT negative for acute bleed. PT evaluation. may need [facility] re[facility]. Seizure: Possible seizure episode this morning. Keppra loading dose given and started on keppra 500mg bid Heme: Microcytic anemia. monitor cbc daily. remains low stable. check iron studies. no signs of bleeding Card: Sick sinus syndrome s/p PPM Hypertension: Antihypertensive being held 2/2 to hypotension on admission. continue to hold and monitor bp. Renal: Hyponatremia: Sodium dropping from labs done here 2 days prior. start on NS and recheck labs q 4. renal following. fen tolerating po monitor labs prophy lovenox Visit type - Emergency Visit Emergency Visit: Yes ED Registration Date: 10/30/18 Care time: The patient presented to the Emergency Department on the above date and was hospitalized for further evaluation of their emergent condition. - New Patient This patient is new to me today: No - Critical Care Critical Care patient: No - Discharge Referral Referred to [facility] No
--- NOTE | 2018-11-03 09:12 | PN ---
Progress Note (short form) - Note Progress Note: Neurology CHIEF COMPLAINT:AMS/Slurred speech PCP: [facility] HISTORY OF PRESENT ILLNESS: 58yo M with PMH seizure with residual R sided weakness, s/p PPM, HTN and seizure presented to the ER after he was found slumped over in a chair at the [facility] on day of admission. He was with his step-daughter who left to take her mother to the bathroom and when she returned, he was slumped over in the chair. Initially, patient was unresponsive and then became alert with symptoms of slurred speech and drooling. No seizure activity was noted. Code Bashir initiated in the ER with [facility]. Contact by ER. Patient was not a TPA candidate as symptoms resolved prior to arrival to the ER. Initially, patient unclear why he was in the hospital and can not recall the last thing he remembers. He stated he did not think he took his medications on day of admission and was unaware of his medical problems. CT head was completed and did not show acute changes. He was admitted for further eval, repeat CT head completed on 10/31/18, no acute changes noted but chronic infarcts. Carotid doppler reviewed and no high grade evidence of HD significant stenosis noted. No new deficits overnight. On statin and started on ASA. Overnight with rapid response, questionable seizure like activity, notes reviewed, spoke to ALUMNI RELATIONS MANAGER and floor nurse. Was given Keppra 1000mg in the AM, added 500mg twice daily. Reportedly with prior history of seizure though poor historian. Allergies Penicillins Allergy (Severe, Verified 10/30/18 14:35) Difficulty Breathing Active Medications Aspirin (Ecotrin -) 81 mg PO DAILY [facility] Last Admin: 11/02/18 09:14 Dose: 81 mg Enoxaparin Sodium (Lovenox -) 40 mg SQ DAILY [facility] Last Admin: 11/02/18 09:14 Dose: 40 mg Levetiracetam (Keppra Injection -) 500 mg IVPB BID ELE[facility]AR Levetiracetam (Keppra -) 500 mg PO BID [facility] Rosuvastatin Calcium (Crestor -) 20 mg PO HS [facility] Last Admin: 11/02/18 21:19 Dose: 20 mg PHYSICAL EXAMINATION Vital Signs Period Temp Pulse Resp BP Sys/Evangelista Pulse Ox Last 24 Hr 96.5 F-98.1 F 69-86 18-20 100-135/67-91 96 GENERAL: A&O x2 (self and location), in no acute distress. HEAD: Normal with no signs of trauma. EYES: Pupils equal, round and reactive to light, extraocular movements intact, sclera anicteric, conjunctiva clear. No lid lag. EARS, NOSE, THROAT: Ears normal, nares patent, oropharynx clear without exudates. Moist mucous membranes. poor oral dentition NECK: Normal range of motion, supple without lymphadenopathy, JVD, or masses. LUNGS: Breath sounds equal, clear to auscultation bilaterally. No wheezes, and no crackles. No accessory muscle use. HEART: Regular rate and rhythm, normal S1 and S2 without murmur, rub or gallop. ABDOMEN: Soft, nontender, not distended, normoactive bowel sounds, no guarding, no rebound, no masses. No hepatomegaly or splenomegaly. MUSCULOSKELETAL: Normal range of motion at all joints. No bony deformities or tenderness. No CVA tenderness. UPPER EXTREMITIES: 2+ pulses, warm, well-perfused. No cyanosis. No clubbing. No peripheral edema. LOWER EXTREMITIES: 2+ pulses, warm, well-perfused. No calf tenderness. No peripheral edema. NEUROLOGICAL: Cranial nerves II-XII intact. +asymmetric smile with nasolabrial flattening. slurred speech strength 4/5 RUE 5/5 all remaining extremities sensation grossly intact. neg pronator drift/dysmetria. gait testing deferred PSYCHIATRIC: Cooperative. Good eye contact. Appropriate mood and affect. SKIN: Warm, dry, normal turgor, no rashes or lesions noted, normal capillary refill. CBCD WBC 6.7 K/mm3 (4.0-10.0) 11/03/18 06:00 RBC 3.72 M/mm3 (4.00-5.60) L 11/03/18 06:00 Hgb 9.8 GM/dL (11.7-16.9) L 11/03/18 06:00 Hct 28.5 % (35.4-49) L 11/03/18 06:00 MCV 76.7 fl (80-96) L 11/03/18 06:00 MCHC 34.2 g/dl (32.0-35.9) 11/03/18 06:00 RDW 18.4 % (11.9-15.9) H 11/03/18 06:00 Plt Count 251 K/MM3 (134-434) 11/03/18 06:00 MPV 8.2 fl (7.5-11.1) 11/03/18 06:00 CMP Sodium 128 mmol/L (136-145) L 11/03/18 06:00 Potassium 3.8 mmol/L (3.5-5.1) 11/03/18 06:00 Chloride 95 mmol/L (98-107) L 11/03/18 06:00 Carbon Dioxide 21 mmol/L (21-32) 11/03/18 06:00 Anion Gap 11 MMOL/L (8-16) 11/03/18 06:00 BUN 10 mg/dL (7-18) 11/03/18 06:00 Creatinine 0.8 mg/dL (0.55-1.3) 11/03/18 06:00 Creat Clearance w eGFR > 60 (>60) 11/03/18 06:00 Random Glucose 101 mg/dL (74-106) 11/03/18 06:00 Calcium 8.0 mg/dL (8.5-10.1) L 11/03/18 06:00 Total Bilirubin 0.2 mg/dL (0.2-1) 11/03/18 06:00 AST 12 U/L (15-37) L 11/03/18 06:00 ALT 11 U/L (13-61) L 11/03/18 06:00 Alkaline Phosphatase 62 U/L (45-117) 11/03/18 06:00 Total Protein 7.0 g/dl (6.4-8.2) 11/03/18 06:00 Albumin 3.1 g/dl (3.4-5.0) L 11/03/18 06:00 CARDIAC ENZYMES Creatine Kinase 29 U/L (26-308) 10/30/18 21:07 Troponin I < 0.02 ng/ml (0.00-0.05) 10/30/18 21:[address] (initial) - completed, reviewed Carotid Doppler - completed Head CT (repeat) - completed ASSESSMENT/PLAN: 58yo M with PMH seizure with residual R sided weakness, s/p PPM, HTN and seizure presented to the ER after he was found slumped over in a chair at the [facility] on day of admission. He was with his step-daughter who left to take her mother to the bathroom and when she returned, he was slumped over in the chair. Initially, patient was unresponsive and then became alert with symptoms of slurred speech and drooling. No seizure activity was noted. Julia Bashir initiated in the ER with [facility]. Contact by ER. Patient was not a TPA candidate as symptoms resolved prior to arrival to the ER. Initially, patient unclear why he was in the hospital and can not recall the last thing he remembers. He stated he did not think he took his medications on day of admission and was unaware of his medical problems. CT head was completed and did not show acute changes. Carotid doppler completed, awaiting official report. He was admitted for further eval, repeat CT head completed on 10/31/18, no acute changes noted. Carotid doppler reviewed and no high grade evidence of HD significant stenosis noted. No new deficits overnight. On tele monitoring, hydration recommended. Monitor blood pressure maintain normotensive range. On Statin and ASA. Overnight with rapid response, questionable seizure like activity, notes reviewed, spoke to ALUMNI RELATIONS MANAGER and floor nurse. Was given Keppra 1000mg in the AM, added 500mg twice daily. Reportedly with prior history of seizure though poor historian. Also being evaluated for hyponatremia. DVT ppx.
[2018-11-03] MEDS: ENOXAPARIN NA (PORCINE) 40 MG/0.4 ML DISP.SYRIN SQ SCH (09:15)
[2018-11-03] MEDS: ASPIRIN COATED 81 MG TABLET.EC PO SCH (09:16)
[2018-11-03] MEDS: levETIRAcetam 500 MG TABLET (FP) PO SCH ×2 (09:17→21:18)
[2018-11-03] MEDS ORDERED: levETIRAcetam 500 MG/5 ML INJECTION VIAL IVPB SCH (10:00)
[2018-11-03 10:05] LABS: OSMOLALITY,SERUM 271 mosm/kg (278-305)
--- NOTE | 2018-11-03 11:03 | CON.CARD ---
Consult Consult Specialty:: Cardiolgy Referred by:: Hospitalist Reason for Consultation:: Cardiac evaluation - History of Present Illness Chief Complaint: Admitted with slurred speech and change in mental status History of Present Illness: Patient is a 58 year old male with underlying history of HTN, hypercholesterolemia, sick sinus syndrome s/p PPM and seizure disorder who presents after being found slumped over a chair at the [facility]. He was found unresponsive and then woke up with slurred speech and drooling. Neurology was consulted in the ED. TPA was not given. He was unaware of the reason for being in the hospital. CT of head was unremarkable. During the civil rights attorney, he was found to have seizure (generalized tonic clonic) and rapid response was called. Keppra was given. Currently, he is arousable but could not obtain history. He denies chest pain, SOB or palpitations. No fever or chills. Denies headache or lightheadedness. 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 Cardio/Vascular: Yes: HTN, Other (Sick sinus syndrome s/p PPM) - Past Surgical History Past Surgical History: Yes: Permanent Pacemaker - Alcohol/Substance Use Hx Alcohol Use: No - Smoking History Smoking history: Unknown if ever smoked Have you smoked in the past 12 months: No Home Medications - Allergies Allergies/Adverse Reactions: Allergies Allergy/AdvReac Type Severity Reaction Status Date / Time Penicillins Allergy Severe Difficulty Verified 10/30/18 14:35 Breathing - Home Medications Home Medications: Ambulatory Orders Aspirin [ASA -] 81 mg PO DAILY 10/30/18 Folic Acid 1 mg PO DAILY 10/30/18 Levetiracetam [Keppra] 150 mg PO BID 10/30/18 Lisinopril [Prinivil] 5 mg PO DAILY 10/30/18 Simvastatin 20 mg PO DAILY 10/30/18 Family Disease History - Family Disease History Family History: Unable to Obtain Review of Systems - Review of Systems Constitutional: denies: Chills, Fever Cardiovascular: denies: Chest Pain, Palpitations, Shortness of Breath Respiratory: denies: Cough, Hemoptysis, Orthopnea Gastrointestinal: denies: Abdominal Pain, Constipation, Diarrhea, Melena, Nausea , Rectal Bleeding, Vomiting Genitourinary: denies: Dysuria, Hematuria Neurological: reports: Seizure. denies: Dizziness, Headache, Syncope Vital Signs: Vital Signs Temperature 98.4 F 11/03/18 09:19 Pulse Rate 84 11/03/18 09:19 Respiratory Rate 16 11/03/18 09:19 Blood Pressure 108/71 11/03/18 09:19 O2 Sat by Pulse Oximetry (%) 96 11/02/18 19:50 Eyes: Yes: PERRL HENT: Yes: Atraumatic Neck: Yes: Supple Respiratory: Yes: CTA Bilaterally Gastrointestinal: Yes: Normal Bowel Sounds, Soft. No: Tenderness Cardiovascular: Yes: Regular Rate and Rhythm JVD: No PMI: Non-Displaced Heart Sounds: Yes: S1, S2 Murmur: Yes: Systolic Murmur, Grade 1 Edema: No - Other Data Labs, Other Data: CBC, BMP 11/03/18 06:00 11/03/18 06:00 INR, PTT INR 1.14 (0.83-1.09) H 10/30/18 14:25 Laboratory Results - last 24 hr 11/03/18 11/03/18 11/03/18 02:44 05:47 06:00 WBC 6.7 RBC 3.72 L Hgb 9.8 L Hct 28.5 L MCV 76.7 L MCH 26.3 MCHC 34.2 RDW 18.4 H Plt Count 251 MPV 8.2 Absolute Neuts (auto) 5.2 Neutrophils % 77.5 Lymphocytes % 14.6 D Monocytes % 6.2 Eosinophils % 1.2 Basophils % 0.5 Nucleated RBC % 0 Sodium Potassium Chloride Carbon Dioxide Anion Gap BUN Creatinine Creat Clearance w eGFR POC Glucometer 124 114 Random Glucose Serum Osmolality Calcium Phosphorus Magnesium Total Bilirubin AST ALT Alkaline Phosphatase Total Protein Albumin 11/03/18 06:00 WBC RBC Hgb Hct MCV MCH MCHC RDW Plt Count MPV Absolute Neuts (auto) Neutrophils % Lymphocytes % Monocytes % Eosinophils % Basophils % Nucleated RBC % Sodium 128 L Potassium 3.8 Chloride 95 L Carbon Dioxide 21 Anion Gap 11 BUN 10 Creatinine 0.8 Creat Clearance w eGFR > 60 POC Glucometer Random Glucose 101 Serum Osmolality 271 L Calcium 8.0 L Phosphorus 3.8 Magnesium 1.5 L Total Bilirubin 0.2 AST 12 L ALT 11 L Alkaline Phosphatase 62 Total Protein 7.0 Albumin 3.1 L Atrial paced rhythm Imaging - Results Chest X-ray: Report Reviewed (increase markings) X-ray: Report Reviewed (Hand Xray degenerative changes) Cat Scan: Report Reviewed (Head CT: Left temporal and right frontal cortical/ subcortical infarct) EKG: Report Reviewed Problem List - Problems (1) Seizure Code(s): R56.9 - UNSPECIFIED CONVULSIONS (2) HTN (hypertension) Code(s): I10 - ESSENTIAL (PRIMARY) HYPERTENSION (3) Hypercholesterolemia Code(s): E78.00 - PURE HYPERCHOLESTEROLEMIA, UNSPECIFIED (4) Sick sinus syndrome Code(s): I49.5 - SICK SINUS SYNDROME (5) Presence of permanent cardiac pacemaker Code(s): Z95.0 - PRESENCE OF CARDIAC PACEMAKER (6) Syncope Code(s): R55 - SYNCOPE AND COLLAPSE Assessment/Plan 1. Altered mental status with underling Seizure disorder 2. HTN 3. Hypercholesterolemia 4. Sick sinus syndrome s/p PPM PLAN: 1. Continue current medical therapy including statin therapy and ACEI 2. Echocardiography to assess LV/RV and valvular function 3. Continue Keppra and Neuro follow up 4. DVT prophylaxis 5. PPM interrogation but will need to find out details of the device Further plans are to follow. Patient was seen and examined for 35 minutes Andrews Mejia MD
--- NOTE | 2018-11-03 11:59 | PN ---
Progress Note, ICE CREAM VENDOR - Note Progress Note: Selected Entries 11/01/18 11/01/18 11/01/18 02:25 05:54 09:37 Breakfast 100% Lunch Supper Temperature 97.9 F 98.2 F 11/01/18 11/01/18 11/01/18 10:06 14:20 16:30 Breakfast Lunch 100% Supper Temperature 98.5 F 97.3 F L 97.4 F L 11/01/18 11/01/18 11/02/18 22:01 23:12 02:06 Breakfast Lunch Supper 100% Temperature 97.5 F L 98.1 F 11/02/18 11/02/18 11/02/18 06:00 08:07 14:49 Breakfast Lunch Supper Temperature 97.6 F 97.1 F L 97.5 F L 11/02/18 11/02/18 11/02/18 16:15 22:08 22:15 Breakfast Lunch Supper 100% Temperature 96.5 F L 97.8 F 11/03/18 11/03/18 11/03/18 02:00 06:00 09:00 Breakfast 100% Lunch Supper Temperature 97.7 F 98.1 F 11/03/18 09:19 Breakfast Lunch Supper Temperature 98.4 F Laboratory Tests 10/30/18 10/31/18 10/31/18 14:25 06:15 06:15 WBC 3.9 L Albumin 3.2 L 3.0 L 11/03/18 06:00 WBC 6.7 Albumin Had seizures this am. Dysarthria, impaired cognition,poor dentition with impaired mastication. Needs cut up/assistance with meals. suggest: Diet Consistency: Dysphagia Whole (chopped meat, extra gravy) Liquids: Thin Liquids Supplement: Ensure, Magic Cup
[2018-11-03 12:44] LABS: ALBUMIN 3.4 g/dl (3.4-5.0); ALK PHOS 70 U/L (45-117); ANION GAP 6 MMOL/L (8-16); BILIRUBIN,TOTAL 0.3 mg/dL (0.2-1); BLOOD UREA NITROGEN 7 mg/dL (7-18); CALCIUM 8.7 mg/dL (8.5-10.1); CHLORIDE 95 mmol/L (98-107); CO2 26 mmol/L (21-32); CREATININE 0.7 mg/dL (0.55-1.3); GLUCOSE,RANDOM 77 mg/dL (74-106); MAGNESIUM 2.1 mg/dL (1.8-2.4); POTASSIUM 4.2 mmol/L (3.5-5.1); SGOT/AST 11 U/L (15-37); SGPT/ALT 13 U/L (13-61); SODIUM 127 mmol/L (136-145); TOT PROT 7.5 g/dl (6.4-8.2)
[2018-11-03] MEDS: SODIUM CHLORIDE 1,000 ML IV SCH (12:59)
--- NOTE | 2018-11-03 13:57 | CONSULT ---
Consult Consult Specialty:: Nephrology ( Alonzo/ Robin) Reason for Consultation:: hyponatremia of relatively rapid onset - History of Present Illness Chief Complaint: 58yo M with PMH seizure with residual R sided weakness, HTN and seizure presented to the ER unresponsive. Patient has prior history of HTN , hypercholesterolemia, sick sinus syndrome s/p PPM and seizure disorder. He then woke up with slurred speech and drooling. He is unaware of the reason for being in the hospital. CT of head was unremarkable. During the sap pi architect today, he developed another seizure (generalized tonic clonic) and rapid response was called. Keppra was given. He denies chest pain, SOB or palpitations. No fever or chills. Denies headache or lightheadedness. Nephrology evaluation for Acute Hyponatremia. History of Present Illness: As above. - History Source History Provided By: Patient, Medical Record, Caregiver - Past Medical History FEEDER DRIVER: Yes: Dementia, Seizure Cardio/Vascular: Yes: HTN, Other (Sick sinus syndrome s/p PPM) - Past Surgical History Past Surgical History: Yes: Permanent Pacemaker - Alcohol/Substance Use Hx Alcohol Use: No - Smoking History Smoking history: Unknown if ever smoked Have you smoked in the past 12 months: No Home Medications - Allergies Allergies/Adverse Reactions: Allergies Allergy/AdvReac Type Severity Reaction Status Date / Time Penicillins Allergy Severe Difficulty Verified 10/30/18 14:35 Breathing - Home Medications Home Medications: Ambulatory Orders Aspirin [ASA -] 81 mg PO DAILY 10/30/18 Folic Acid 1 mg PO DAILY 10/30/18 Levetiracetam [Keppra] 150 mg PO BID 10/30/18 Lisinopril [Prinivil] 5 mg PO DAILY 10/30/18 Simvastatin 20 mg PO DAILY 10/30/18 Family Disease History - Family Disease History Family History: Unable to Obtain Review of Systems - Review of Systems Constitutional: reports: Weakness Neck: reports: No Symptoms Cardiovascular: reports: No Symptoms Respiratory: reports: No Symptoms Gastrointestinal: reports: No Symptoms Genitourinary: reports: No Symptoms Musculoskeletal: reports: No Symptoms Neurological: reports: Change in Speech, Confusion, Dizziness, Seizure, Unsteady Gait, Weakness Physical Exam Vital Signs: Vital Signs Temperature 98.4 F 11/03/18 09:19 Pulse Rate 84 11/03/18 09:19 Respiratory Rate 16 11/03/18 09:19 Blood Pressure 108/71 11/03/18 09:19 O2 Sat by Pulse Oximetry (%) 96 11/03/18 10:00 Constitutional: Yes: Anxious Eyes: Yes: Conjunctiva Clear HENT: Yes: Atraumatic Neck: Yes: Supple Cardiovascular: Yes: Pulse Irregular, S1, S2 Respiratory: Yes: CTA Bilaterally, Rhonchi Gastrointestinal: Yes: Normal Bowel Sounds, Soft Renal/: No: Bladder Distention, CVA Tenderness - Left, CVA Tenderness - Right , Hematuria Musculoskeletal: No: Joint Swelling Edema: No Neurological: Yes: Alert, Confusion, Facial Droop, Weakness Labs: CBC, BMP 11/03/18 06:00 11/03/18 11:45 Problem List - Problems (1) Hyponatremia Code(s): E87.1 - HYPO-OSMOLALITY AND HYPONATREMIA (2) HTN (hypertension) Code(s): I10 - ESSENTIAL (PRIMARY) HYPERTENSION (3) Hypercholesterolemia Code(s): E78.00 - PURE HYPERCHOLESTEROLEMIA, UNSPECIFIED (4) Seizure Code(s): R56.9 - UNSPECIFIED CONVULSIONS (5) Syncope Code(s): R55 - SYNCOPE AND COLLAPSE Assessment/Plan 58yo M with PMH seizure with residual R sided weakness, HTN and seizure presented to the ER unresponsive. Patient has prior history of HTN, hypercholesterolemia, sick sinus syndrome s/p PPM and seizure disorder. He then woke up with slurred speech and drooling. He is unaware of the reason for being in the hospital. CT of head was unremarkable. During the sap pi architect today, he developed another seizure. Hyponatremia...of relatively acute nature in this 58 y/o male with Chronic seizure disorder. 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 ? SIADH. Can not r/o a co-existing isotonic Hyponatremia probably related to the patient's diet and debilitated state and renal interstitial isotonicity. Concur with cautious infusion of NSS. If the Serum Sodium drops while receiving NSS, may need to restrict the free water. Mag supplements as ordered. Will monitor the Renal/ Electrolytes with you. Thank you. Cori Rosado MD
[2018-11-03] MEDS: FERROUS SO4 325 MG TABLET (FP) PO SCH (18:17)
[2018-11-03] MEDS: ROSUVASTATIN CA 20 MG TABLET (FP) PO SCH (21:18)
[2018-11-03 22:41] LABS: ALK PHOS 60 U/L (45-117); ANION GAP 8 MMOL/L (8-16); BILIRUBIN,TOTAL 0.3 mg/dL (0.2-1); BLOOD UREA NITROGEN 9 mg/dL (7-18); CALCIUM 7.7 mg/dL (8.5-10.1); CHLORIDE 97 mmol/L (98-107); CO2 25 mmol/L (21-32); CREATININE 0.8 mg/dL (0.55-1.3); GLUCOSE,RANDOM 93 mg/dL (74-106); SGPT/ALT 11 U/L (13-61); SODIUM 130 mmol/L (136-145); TOT PROT 6.8 g/dl (6.4-8.2)
[2018-11-03 22:42] LABS: POTASSIUM 4.2 mmol/L (3.5-5.1); SGOT/AST 15 U/L (15-37)
[2018-11-04 02:27] LABS: ALBUMIN 2.9 g/dl (3.4-5.0); ALK PHOS 56 U/L (45-117); ANION GAP 5 MMOL/L (8-16); BILIRUBIN,TOTAL 0.2 mg/dL (0.2-1); BLOOD UREA NITROGEN 9 mg/dL (7-18); CALCIUM 7.9 mg/dL (8.5-10.1); CHLORIDE 102 mmol/L (98-107); CO2 25 mmol/L (21-32); CREATININE 0.7 mg/dL (0.55-1.3); GLUCOSE,RANDOM 99 mg/dL (74-106); POTASSIUM 4.2 mmol/L (3.5-5.1); SGOT/AST 12 U/L (15-37); SGPT/ALT 12 U/L (13-61); SODIUM 132 mmol/L (136-145); TOT PROT 6.7 g/dl (6.4-8.2)
[2018-11-04 07:38] LABS: ALK PHOS 55 U/L (45-117); ANION GAP 6 MMOL/L (8-16); BILIRUBIN,TOTAL 0.2 mg/dL (0.2-1); BLOOD UREA NITROGEN 7 mg/dL (7-18); CALCIUM 7.8 mg/dL (8.5-10.1); CHLORIDE 106 mmol/L (98-107); CO2 21 mmol/L (21-32); CREATININE 0.6 mg/dL (0.55-1.3); GLUCOSE,RANDOM 87 mg/dL (74-106); MAGNESIUM 1.8 mg/dL (1.8-2.4); POTASSIUM 4.5 mmol/L (3.5-5.1); SGOT/AST 8 U/L (15-37); SGPT/ALT 10 U/L (13-61); SODIUM 134 mmol/L (136-145); TOT PROT 6.6 g/dl (6.4-8.2); URIC ACID 3.9 mg/dL (2.6-7.2)
--- NOTE | 2018-11-04 09:21 | PN ---
Progress Note (short form) - Note Progress Note: Neurology CHIEF COMPLAINT:AMS/Slurred speech PCP: [facility] HISTORY OF PRESENT ILLNESS: 58yo M with PMH seizure with residual R sided weakness, s/p PPM, HTN and seizure presented to the ER after he was found slumped over in a chair at the [facility] on day of admission. He was with his step-daughter who left to take her mother to the bathroom and when she returned, he was slumped over in the chair. Initially, patient was unresponsive and then became alert with symptoms of slurred speech and drooling. No seizure activity was noted. Code Bashir initiated in the ER with [facility]. Contact by ER. Patient was not a TPA candidate as symptoms resolved prior to arrival to the ER. Initially, patient unclear why he was in the hospital and can not recall the last thing he remembers. He stated he did not think he took his medications on day of admission and was unaware of his medical problems. CT head was completed and did not show acute changes. He was admitted for further eval, repeat CT head completed on 10/31/18, no acute changes noted but chronic infarcts. Carotid doppler reviewed and no high grade evidence of HD significant stenosis noted. No new deficits overnight. No seizures overnight, discussed with nurse who confirmed. Neurologically stable. Renal note reviewed. Allergies Penicillins Allergy (Severe, Verified 10/30/18 14:35) Difficulty Breathing Active Medications Aspirin (Ecotrin -) 81 mg PO DAILY [facility] Last Admin: 11/03/18 09:16 Dose: 81 mg Enoxaparin Sodium (Lovenox -) 40 mg SQ DAILY [facility] Last Admin: 11/03/18 09:15 Dose: 40 mg Ferrous Sulfate (Feosol -) 325 mg PO TIDCM [facility] Last Admin: 11/03/18 18:17 Dose: 325 mg Sodium Chloride (Normal Saline -) 1,000 mls @ 83 mls/hr IV ASDIR [facility] Last Admin: 11/03/18 12:59 Dose: 83 mls/hr Levetiracetam (Keppra -) 500 mg PO BID [facility] Last Admin: 11/03/18 21:18 Dose: 500 mg Rosuvastatin Calcium (Crestor -) 20 mg PO HS [facility] Last Admin: 11/03/18 21:18 Dose: 20 mg PHYSICAL EXAMINATION Vital Signs Period Temp Pulse Resp BP Sys/Evangelista Pulse Ox Last 24 Hr 97.2 F-98.2 F 70-74 16-20 111-139/53-85 96-100 GENERAL: A&O x2 (self and location), in no acute distress. HEAD: Normal with no signs of trauma. EYES: Pupils equal, round and reactive to light, extraocular movements intact, sclera anicteric, conjunctiva clear. No lid lag. EARS, NOSE, THROAT: Ears normal, nares patent, oropharynx clear without exudates. Moist mucous membranes. poor oral dentition NECK: Normal range of motion, supple without lymphadenopathy, JVD, or masses. LUNGS: Breath sounds equal, clear to auscultation bilaterally. No wheezes, and no crackles. No accessory muscle use. HEART: Regular rate and rhythm, normal S1 and S2 without murmur, rub or gallop. ABDOMEN: Soft, nontender, not distended, normoactive bowel sounds, no guarding, no rebound, no masses. No hepatomegaly or splenomegaly. MUSCULOSKELETAL: Normal range of motion at all joints. No bony deformities or tenderness. No CVA tenderness. UPPER EXTREMITIES: 2+ pulses, warm, well-perfused. No cyanosis. No clubbing. No peripheral edema. LOWER EXTREMITIES: 2+ pulses, warm, well-perfused. No calf tenderness. No peripheral edema. NEUROLOGICAL: Cranial nerves II-XII intact. +asymmetric smile with nasolabrial flattening. slurred speech strength 4/5 RUE 5/5 all remaining extremities sensation grossly intact. neg pronator drift/dysmetria. gait testing deferred PSYCHIATRIC: Cooperative. Good eye contact. Appropriate mood and affect. SKIN: Warm, dry, normal turgor, no rashes or lesions noted, normal capillary refill. CBCD WBC 6.7 K/mm3 (4.0-10.0) 11/03/18 06:00 RBC 3.72 M/mm3 (4.00-5.60) L 11/03/18 06:00 Hgb 9.8 GM/dL (11.7-16.9) L 11/03/18 06:00 Hct 28.5 % (35.4-49) L 11/03/18 06:00 MCV 76.7 fl (80-96) L 11/03/18 06:00 MCHC 34.2 g/dl (32.0-35.9) 11/03/18 06:00 RDW 18.4 % (11.9-15.9) H 11/03/18 06:00 Plt Count 251 K/MM3 (134-434) 11/03/18 06:00 MPV 8.2 fl (7.5-11.1) 11/03/18 06:00 CMP Sodium 134 mmol/L (136-145) L 11/04/18 06:30 Potassium 4.5 mmol/L (3.5-5.1) 11/04/18 06:30 Chloride 106 mmol/L (98-107) 11/04/18 06:30 Carbon Dioxide 21 mmol/L (21-32) 11/04/18 06:30 Anion Gap 6 MMOL/L (8-16) L 11/04/18 06:30 BUN 7 mg/dL (7-18) 11/04/18 06:30 Creatinine 0.6 mg/dL (0.55-1.3) 11/04/18 06:30 Creat Clearance w eGFR > 60 (>60) 11/04/18 06:30 Random Glucose 87 mg/dL (74-106) 11/04/18 06:30 Calcium 7.8 mg/dL (8.5-10.1) L 11/04/18 06:30 Total Bilirubin 0.2 mg/dL (0.2-1) 11/04/18 06:30 AST 8 U/L (15-37) L 11/04/18 06:30 ALT 10 U/L (13-61) L 11/04/18 06:30 Alkaline Phosphatase 55 U/L (45-117) 11/04/18 06:30 Total Protein 6.6 g/dl (6.4-8.2) 11/04/18 06:30 Albumin 3.0 g/dl (3.4-5.0) L 11/04/18 06:30 CARDIAC ENZYMES Creatine Kinase 29 U/L (26-308) 10/30/18 21:07 Troponin I < 0.02 ng/ml (0.00-0.05) 10/30/18 21:[address] (initial) - completed, reviewed Carotid Doppler - completed Head CT (repeat) - completed ASSESSMENT/PLAN: 58yo M with PMH seizure with residual R sided weakness, s/p PPM, HTN and seizure presented to the ER after he was found slumped over in a chair at the [facility] on day of admission. He was with his step-daughter who left to take her mother to the bathroom and when she returned, he was slumped over in the chair. Initially, patient was unresponsive and then became alert with symptoms of slurred speech and drooling. No seizure activity was noted. Julia Bashir initiated in the ER with [facility] 4. Contact by ER. Patient was not a TPA candidate as symptoms resolved prior to arrival to the ER. Initially, patient unclear why he was in the hospital and can not recall the last thing he remembers. He stated he did not think he took his medications on day of admission and was unaware of his medical problems. CT head was completed and did not show acute changes. Carotid doppler completed, awaiting official report. He was admitted for further eval, repeat CT head completed on 10/31/18, no acute changes noted. Carotid doppler reviewed and no high grade evidence of HD significant stenosis noted. No new deficits overnight. On tele monitoring, hydration recommended. Monitor blood pressure maintain normotensive range. On Statin and ASA. No new deficits overnight. No seizures overnight, discussed with nurse who confirmed. Neurologically stable. Renal note reviewed. DVT ppx.
[2018-11-04] MEDS: levETIRAcetam 500 MG TABLET (FP) PO SCH ×2 (09:43→21:34)
[2018-11-04] MEDS: ASPIRIN COATED 81 MG TABLET.EC PO SCH (09:43)
[2018-11-04] MEDS: ENOXAPARIN NA (PORCINE) 40 MG/0.4 ML DISP.SYRIN SQ SCH (09:43)
[2018-11-04] MEDS: FERROUS SO4 325 MG TABLET (FP) PO SCH ×3 (09:43→18:06)
--- NOTE | 2018-11-04 11:53 | PN ---
Progress Note, MANAGER PRINT - Note Progress Note: Selected Entries 11/03/18 11/03/18 11/03/18 02:00 06:00 09:00 Breakfast 100% Lunch Supper Temperature 97.7 F 98.1 F 11/03/18 11/03/18 11/03/18 09:19 13:00 18:00 Breakfast Lunch 100% Supper Temperature 98.4 F 98.1 F 97.5 F L 11/03/18 11/03/18 11/04/18 19:48 22:00 02:00 Breakfast Lunch Supper 100% Temperature 97.2 F L 97.9 F 11/04/18 11/04/18 06:37 08:04 Breakfast Lunch Supper Temperature 98.2 F 98 F Laboratory Tests 11/03/18 06:00 WBC 6.7 On Dys wholoe, received all minced up. Pt can tolerate Whole, soft easy to chew foods.
[2018-11-04] MEDS: SODIUM CHLORIDE 1,000 ML IV SCH ×2 (13:24→16:32)
--- NOTE | 2018-11-04 15:28 | PN ---
Progress Note, Physician History of Present Illness: Sensorium improved. - Current Medication List Current Medications: Active Medications Aspirin (Ecotrin -) 81 mg PO DAILY [facility] Last Admin: 11/04/18 09:43 Dose: 81 mg Enoxaparin Sodium (Lovenox -) 40 mg SQ DAILY [facility] Last Admin: 11/04/18 09:43 Dose: 40 mg Ferrous Sulfate (Feosol -) 325 mg PO TIDCM [facility] Last Admin: 11/04/18 12:24 Dose: 325 mg Sodium Chloride (Normal Saline -) 1,000 mls @ 83 mls/hr IV ASDIR [facility] Last Admin: 11/04/18 13:24 Dose: 83 mls/hr Levetiracetam (Keppra -) 500 mg PO BID [facility] Last Admin: 11/04/18 09:43 Dose: 500 mg Rosuvastatin Calcium (Crestor -) 20 mg PO HS [facility] Last Admin: 11/03/18 21:18 Dose: 20 mg - Objective Vital Signs: Vital Signs Temperature 97.6 F 11/04/18 13:41 Pulse Rate 74 11/04/18 13:41 Respiratory Rate 18 11/04/18 13:41 Blood Pressure 120/63 11/04/18 13:41 O2 Sat by Pulse Oximetry (%) 97 11/04/18 08:09 Constitutional: Yes: No Distress, Calm, Thin Neck: Yes: Supple Cardiovascular: Yes: Regular Rate and Rhythm Respiratory: Yes: Regular, Diminished Gastrointestinal: Yes: Normal Bowel Sounds, Soft Edema: No Labs: CBC, BMP 11/03/18 06:00 11/04/18 06:30 INR, PTT INR 1.14 (0.83-1.09) H 10/30/18 14:25 - ....Imaging EKG: Report Reviewed (Tele: A-en-Gauge) Problem List - Problems (1) HTN (hypertension) Code(s): I10 - ESSENTIAL (PRIMARY) HYPERTENSION Qualifiers: Hypertension type: essential hypertension Qualified Code(s): I10 - Essential (primary) hypertension (2) Hypercholesterolemia Code(s): E78.00 - PURE HYPERCHOLESTEROLEMIA, UNSPECIFIED (3) Hyponatremia Code(s): E87.1 - HYPO-OSMOLALITY AND HYPONATREMIA (4) Presence of permanent cardiac pacemaker Code(s): Z95.0 - PRESENCE OF CARDIAC PACEMAKER (5) Seizure Code(s): R56.9 - UNSPECIFIED CONVULSIONS (6) Sick sinus syndrome Code(s): I49.5 - SICK SINUS SYNDROME Assessment/Plan 1. Altered mental status with underling Seizure disorder 2. HTN 3. Hypercholesterolemia 4. Sick sinus syndrome s/p PPM 5. Hyponatremia resolving PLAN: 1. Continue ASA 81 qd, Crestor 20 qhs, resume lisinopril 5 qd as hemodynamics tolerate 2. Echocardiography to assess LV/RV and valvular function 3. Continue Keppra and Neuro follow up 4. DVT prophylaxis 5. PPM interrogation but will need to find out details of the device
--- NOTE | 2018-11-04 15:28 | PN ---
Progress Note, Physician Chief Complaint: The patient seen and examined in his room. Seems comfortable. No further seizures. History of Present Illness: No new complaints. Patient tolerates the IV fluids. Maintain good urine output. - Current Medication List Current Medications: Active Medications Aspirin (Ecotrin -) 81 mg PO DAILY [facility] Last Admin: 11/04/18 09:43 Dose: 81 mg Enoxaparin Sodium (Lovenox -) 40 mg SQ DAILY [facility] Last Admin: 11/04/18 09:43 Dose: 40 mg Ferrous Sulfate (Feosol -) 325 mg PO TIDCM [facility] Last Admin: 11/04/18 12:24 Dose: 325 mg Sodium Chloride (Normal Saline -) 1,000 mls @ 83 mls/hr IV ASDIR [facility] Last Admin: 11/04/18 13:24 Dose: 83 mls/hr Levetiracetam (Keppra -) 500 mg PO BID [facility] Last Admin: 11/04/18 09:43 Dose: 500 mg Rosuvastatin Calcium (Crestor -) 20 mg PO HS [facility] Last Admin: 11/03/18 21:18 Dose: 20 mg - Objective Vital Signs: Vital Signs Temperature 97.6 F 11/04/18 13:41 Pulse Rate 74 11/04/18 13:41 Respiratory Rate 18 11/04/18 13:41 Blood Pressure 120/63 11/04/18 13:41 O2 Sat by Pulse Oximetry (%) 97 11/04/18 08:09 Constitutional: Yes: No Distress Eyes: Yes: Conjunctiva Clear HENT: Yes: Normocephalic Neck: Yes: Trachea Midline Cardiovascular: Yes: Pulse Irregular, S1, S2 Respiratory: Yes: CTA Bilaterally Gastrointestinal: Yes: Normal Bowel Sounds Genitourinary: No: CVA Tenderness - Left, CVA Tenderness - Right Labs: CBC, BMP 11/03/18 06:00 11/04/18 06:30 INR, PTT INR 1.14 (0.83-1.09) H 10/30/18 14:25 Problem List - Problems (1) Hyponatremia Code(s): E87.1 - HYPO-OSMOLALITY AND HYPONATREMIA (2) HTN (hypertension) Code(s): I10 - ESSENTIAL (PRIMARY) HYPERTENSION (3) Hypercholesterolemia Code(s): E78.00 - PURE HYPERCHOLESTEROLEMIA, UNSPECIFIED (4) Seizure Code(s): R56.9 - UNSPECIFIED CONVULSIONS (5) Syncope Code(s): R55 - SYNCOPE AND COLLAPSE Assessment/Plan 58yo M with PMH seizure with residual R sided weakness, HTN and seizure presented to the ER unresponsive. Patient has prior history of HTN, hypercholesterolemia, sick sinus syndrome s/p PPM and seizure disorder. He then woke up with slurred speech and drooling. He is unaware of the reason for being in the hospital. CT of head was unremarkable. During the barmaid today, he developed another seizure. Hyponatremia.. . Improving. The onset is fairly acute. The initial Urine Osmolality of 316 mOsm suggestive of a defect in maximal urinary dilution process. ? SIADH. The repeat UOsm only 144. Can not r/o a co-existing isotonic Hyponatremia probably related to the patient's diet and debilitated state and renal interstitial isotonicity. Concur with cautious infusion of NSS. Will reduce the rate to 40ml/h. Mag supplements as ordered. Will monitor the Renal/ Electrolytes with you. Thank you. Coir Rosado MD
--- NOTE | 2018-11-04 15:34 | PN ---
Physical Exam: SUBJECTIVE: Patient seen and examined at the bedside. confused, forgetful, unable to provide me with a history. did not remember why he has a pacemaker. poor historian. OBJECTIVE: Vital Signs Period Temp Pulse Resp BP Sys/Evangelista Pulse Ox Last 24 Hr 97.2 F-98.2 F 70-74 18-20 120-139/53-85 97-100 GENERAL: The patient is awake, alert, forgetful. unsure if his mentation is at his baseline. HEAD: Normal with no signs of trauma. EYES: PERRL, extraocular movements intact, sclera anicteric, conjunctiva clear. No ptosis. ENT: Ears normal, nares patent, oropharynx clear without exudates, moist mucous membranes. NECK: Trachea midline, full range of motion, supple. HEART: Regular rate and rhythm,90s - tachy 140s this morning at 5am ABDOMEN: Soft, nontender, nondistended, normoactive bowel sounds, no guarding, no rebound, no hepatosplenomegaly, no masses. EXTREMITIES: no edema. NEUROLOGICAL: Normal speech, upper ext weakness, right>left PSYCH: Normal mood, normal affect. SKIN: Warm, dry, normal turgor, no rashes or lesions noted Laboratory Results - last 24 hr 11/03/18 11/03/18 11/04/18 17:25 20:00 01:00 Sodium 130 L 132 L Potassium 4.2 4.2 Chloride 97 L 102 Carbon Dioxide 25 25 Anion Gap 8 5 L BUN 9 9 Creatinine 0.8 0.7 Creat Clearance w eGFR > 60 > 60 Random Glucose 93 99 Uric Acid Calcium 7.7 L 7.9 L Phosphorus Magnesium Total Bilirubin 0.3 0.2 AST 15 12 L ALT 11 L 12 L Alkaline Phosphatase 60 56 Total Protein 6.8 6.7 Albumin 3.0 L 2.9 L TSH Urine Osmolality Ur Random Sodium 34 L 11/04/18 11/04/18 06:30 12:00 Sodium 134 L Potassium 4.5 Chloride 106 Carbon Dioxide 21 Anion Gap 6 L BUN 7 Creatinine 0.6 Creat Clearance w eGFR > 60 Random Glucose 87 Uric Acid 3.9 Calcium 7.8 L Phosphorus 4.0 Magnesium 1.8 Total Bilirubin 0.2 AST 8 L ALT 10 L Alkaline Phosphatase 55 Total Protein 6.6 Albumin 3.0 L TSH 2.05 Urine Osmolality 144 L D Ur Random Sodium Active Medications Generic Name Dose Route Start Last Admin Trade Name Philip PRN Reason Stop Dose Admin Aspirin 81 mg 11/01/18 12:30 11/04/18 09:43 Ecotrin - PO 81 mg DAILY [facility] Administration Enoxaparin Sodium 40 mg 10/31/18 10:00 11/04/18 09:43 Lovenox - SQ 40 mg DAILY [facility] Administration Ferrous Sulfate 325 mg 11/03/18 17:30 11/04/18 12:24 Feosol - PO 325 mg TIDCM [facility] Administration Sodium Chloride 1,000 mls @ 83 mls/hr 11/03/18 12:45 11/04/18 13:24 Normal Saline - IV 83 mls/hr ASDIR [facility] Administration Levetiracetam 500 mg 11/03/18 10:00 11/04/18 09:43 Keppra - PO 500 mg BID [facility] Administration Rosuvastatin Calcium 20 mg 10/30/18 22:00 11/03/18 21:18 Crestor - PO 20 mg HS [facility] Administration ASSESSMENT/PLAN: Patient is a 58 year old male with a significant past medical history of 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 He presented to the ER after he was found slumped over in a chair at the [facility] , was initially unresponsive and then became alert. +drooling with slurred speech. A code osman was initiated in the Ed. He was not a Tpa candidate as symptoms resolved prior to arrival to the ED. Neuro: Acute metabolic enceph. resolved. secondary to seizure vs. CVA. head ct negative for acute process. shows chronic left temporal and right frontal subcoritcal infarcts. Mental status improving and appears to be at his baseline. He is unable to get an mri of brain 2/2 to [facility]. Neuro consulted and following. Head CT negative for acute bleed. PT evaluation. may need short term rehab. Seizure: Possible seizure episode this morning. Keppra loading dose given and started on keppra 500mg bid. Heme: Microcytic anemia. monitor cbc daily. remains low stable. check iron studies. no signs of bleeding. Will need outpatient GI follow up for possible colonoscopy. Will start on PPI. Card: Sick sinus syndrome s/p PPM. needs to be interrogated. Hypertension: started on home dose of lisinopril daily. Renal: Hyponatremia: Sodium dropping from labs done here 2 days prior. corrected with NS, rate lowered to 40cc/hr. renal following. fen tolerating po monitor labs prophy lovenox Visit type - Emergency Visit Emergency Visit: Yes ED Registration Date: 10/30/18 Care time: The patient presented to the Emergency Department on the above date and was hospitalized for further evaluation of their emergent condition. - New Patient This patient is new to me today: No - Critical Care Critical Care patient: No - Discharge Referral Referred to [facility] Med [facility] No
[2018-11-04] MEDS: ROSUVASTATIN CA 20 MG TABLET (FP) PO SCH (21:34)
--- NOTE | 2018-11-04 23:42 | ECHO ---
Version: 1 Name: CE FLOR Exam: Adult Echocardiogram Study Date: 11/04/2018, 9:55 AM Age: 58 Years MMode/2D Measurements & Calculations IVSd: 1.40 cm LVIDs: 2.48 cm LVIDd: 3.5 cm LVPWd: 0.91 cm Ao root diam: 2.8 cm LA dimension: 3.8 cm Doppler Measurements & Calculations MV E max delvis: 110.0 cm/sec Med E/e': 19.4 MV A max delvis: 98.0 cm/sec Med Peak E' Delvis: 5.7 cm/sec MV E/A: 1.12 Lat E/e': 15.8 Lat Peak E' Delvis: 7.0 cm/sec MR max P.3 mmHg TR max delvis: 206.3 cm/sec TR max P.0 mmHg Left Ventricle The left ventricle is normal in size. Mild to moderate concentric LVH. Left ventricular systolic fun ction is normal. Ejection Fraction = 60%. Diastolic dysfunction, Grade II (pseudonormalization pattern). The left ventricular wall motion is normal. Right Ventricle There is a pacemaker lead in the right ventricle. The right ventricular systolic function is normal. Atria Normal left and right atrial size and function. There is a catheter/pacemaker lead seen in the right atrium. Mitral Valve There is mild to moderate mitral regurgitation. Tricuspid Valve There is mild tricuspid valve thickening. There is mild tricuspid regurgitation. Right ventricular s ystolic pressure is normal. Aortic Valve There is trivial aortic valve thickening. Trace aortic regurgitation. Pulmonic Valve The pulmonic valve is not well visualized. Trace to mild pulmonic valvular regurgitation. Great Vessels The aortic root is normal size. Pericardium/Pleura There is no pericardial effusion. Summary Statements The left ventricle is normal in size. Left ventricular systolic function is normal. Ejection Fraction = 60%. Diastolic dysfunction, Grade II (pseudonormalization pattern). The left ventricular wall motion is normal. Mild to moderate concentric LVH The right ventricular systolic function is normal. There is a pacemaker lead in the right ventricle. Normal left and right atrial size and function. There is mild to moderate mitral regurgitation. There is mild tricuspid regurgitation. Right ventricular systolic pressure is normal. Trace to mild pulmonic valvular regurgitation. The pulmonic valve is not well visualized. There is trivial aortic valve thickening. Trace aortic regurgitation. The aortic root is normal size. There is no pericardial effusion. There is mild tricuspid valve thickening. There is a catheter/pacemaker lead seen in the right atrium. Vicente Lopez MD 11/04/2018, 11:41 PM Ordering Physician: Thu Wise Performed By: Toyin Cornejo
[2018-11-05] MEDS: FERROUS SO4 325 MG TABLET (FP) PO SCH ×3 (08:35→17:09)
[2018-11-05 08:41] LABS: ALK PHOS 55 U/L (45-117); ANION GAP 6 MMOL/L (8-16); BILIRUBIN,TOTAL 0.4 mg/dL (0.2-1); BLOOD UREA NITROGEN 7 mg/dL (7-18); CALCIUM 8.6 mg/dL (8.5-10.1); CHLORIDE 101 mmol/L (98-107); CO2 23 mmol/L (21-32); CREATININE 0.6 mg/dL (0.55-1.3); GLUCOSE,RANDOM 90 mg/dL (74-106); POTASSIUM 4.3 mmol/L (3.5-5.1); SGOT/AST 14 U/L (15-37); SGPT/ALT 14 U/L (13-61); SODIUM 131 mmol/L (136-145); TOT PROT 6.6 g/dl (6.4-8.2)
--- NOTE | 2018-11-05 08:54 | PN ---
Progress Note (short form) - Note Progress Note: Neurology CHIEF COMPLAINT:AMS/Slurred speech PCP: [facility] HISTORY OF PRESENT ILLNESS: 58yo M with PMH seizure with residual R sided weakness, s/p PPM, HTN and seizure presented to the ER after he was found slumped over in a chair at the [facility] on day of admission. He was with his step-daughter who left to take her mother to the bathroom and when she returned, he was slumped over in the chair. Initially, patient was unresponsive and then became alert with symptoms of slurred speech and drooling. No seizure activity was noted. Code Bashir initiated in the ER with [facility] 4. Contact by ER. Patient was not a TPA candidate as symptoms resolved prior to arrival to the ER. Initially, patient unclear why he was in the hospital and can not recall the last thing he remembers. He stated he did not think he took his medications on day of admission and was unaware of his medical problems. CT head was completed and did not show acute changes. He was admitted for further eval, repeat CT head completed on 10/31/18, no acute changes noted but chronic infarcts. Carotid doppler reviewed and no high grade evidence of HD significant stenosis noted. No new deficits overnight. No seizures overnight, Echo reviewed, normal LV function, EF 60%. Allergies Penicillins Allergy (Severe, Verified 10/30/18 14:35) Difficulty Breathing Active Medications Aspirin (Ecotrin -) 81 mg PO DAILY [facility] Last Admin: 11/04/18 09:43 Dose: 81 mg Enoxaparin Sodium (Lovenox -) 40 mg SQ DAILY [facility] Last Admin: 11/04/18 09:43 Dose: 40 mg Ferrous Sulfate (Feosol -) 325 mg PO TIDCM [facility] Last Admin: 11/05/18 08:35 Dose: 325 mg Sodium Chloride (Normal Saline -) 1,000 mls @ 42 mls/hr IV ASDIR [facility] Last Admin: 11/04/18 16:32 Dose: 42 mls/hr Levetiracetam (Keppra -) 500 mg PO BID [facility] Last Admin: 11/04/18 21:34 Dose: 500 mg Lisinopril (Prinivil) 5 mg PO DAILY [facility] Pantoprazole Sodium (Protonix -) 40 mg PO DAILY [facility] Rosuvastatin Calcium (Crestor -) 20 mg PO HS [facility] Last Admin: 11/04/18 21:34 Dose: 20 mg PHYSICAL EXAMINATION Vital Signs Period Temp Pulse Resp BP Sys/Evangelista Pulse Ox Last 24 Hr 97.5 F-97.8 F 72-92 18-20 120-154/63-109 99 GENERAL: A&O x2 (self and location), in no acute distress. HEAD: Normal with no signs of trauma. EYES: Pupils equal, round and reactive to light, extraocular movements intact, sclera anicteric, conjunctiva clear. No lid lag. EARS, NOSE, THROAT: Ears normal, nares patent, oropharynx clear without exudates. Moist mucous membranes. poor oral dentition NECK: Normal range of motion, supple without lymphadenopathy, JVD, or masses. LUNGS: Breath sounds equal, clear to auscultation bilaterally. No wheezes, and no crackles. No accessory muscle use. HEART: Regular rate and rhythm, normal S1 and S2 without murmur, rub or gallop. ABDOMEN: Soft, nontender, not distended, normoactive bowel sounds, no guarding, no rebound, no masses. No hepatomegaly or splenomegaly. MUSCULOSKELETAL: Normal range of motion at all joints. No bony deformities or tenderness. No CVA tenderness. UPPER EXTREMITIES: 2+ pulses, warm, well-perfused. No cyanosis. No clubbing. No peripheral edema. LOWER EXTREMITIES: 2+ pulses, warm, well-perfused. No calf tenderness. No peripheral edema. NEUROLOGICAL: Cranial nerves II-XII intact. +asymmetric smile with nasolabrial flattening. slurred speech strength 4/5 RUE 5/5 all remaining extremities sensation grossly intact. neg pronator drift/dysmetria. gait testing deferred PSYCHIATRIC: Cooperative. Good eye contact. Appropriate mood and affect. SKIN: Warm, dry, normal turgor, no rashes or lesions noted, normal capillary refill. CBCD WBC 6.7 K/mm3 (4.0-10.0) 11/03/18 06:00 RBC 3.72 M/mm3 (4.00-5.60) L 11/03/18 06:00 Hgb 9.8 GM/dL (11.7-16.9) L 11/03/18 06:00 Hct 28.5 % (35.4-49) L 11/03/18 06:00 MCV 76.7 fl (80-96) L 11/03/18 06:00 MCHC 34.2 g/dl (32.0-35.9) 11/03/18 06:00 RDW 18.4 % (11.9-15.9) H 11/03/18 06:00 Plt Count 251 K/MM3 (134-434) 11/03/18 06:00 MPV 8.2 fl (7.5-11.1) 11/03/18 06:00 CMP Sodium 131 mmol/L (136-145) L 11/05/18 07:00 Potassium 4.3 mmol/L (3.5-5.1) 11/05/18 07:00 Chloride 101 mmol/L (98-107) 11/05/18 07:00 Carbon Dioxide 23 mmol/L (21-32) 11/05/18 07:00 Anion Gap 6 MMOL/L (8-16) L 11/05/18 07:00 BUN 7 mg/dL (7-18) 11/05/18 07:00 Creatinine 0.6 mg/dL (0.55-1.3) 11/05/18 07:00 Creat Clearance w eGFR > 60 (>60) 11/05/18 07:00 Random Glucose 90 mg/dL (74-106) 11/05/18 07:00 Calcium 8.6 mg/dL (8.5-10.1) 11/05/18 07:00 Total Bilirubin 0.4 mg/dL (0.2-1) 11/05/18 07:00 AST 14 U/L (15-37) L 11/05/18 07:00 ALT 14 U/L (13-61) 11/05/18 07:00 Alkaline Phosphatase 55 U/L (45-117) 11/05/18 07:00 Total Protein 6.6 g/dl (6.4-8.2) 11/05/18 07:00 Albumin 3.0 g/dl (3.4-5.0) L 11/05/18 07:00 CARDIAC ENZYMES Creatine Kinase 29 U/L (26-308) 10/30/18 21:07 Troponin I < 0.02 ng/ml (0.00-0.05) 10/30/18 21:[address] (initial) - completed, reviewed Carotid Doppler - completed Head CT (repeat) - completed ASSESSMENT/PLAN: 58yo M with PMH seizure with residual R sided weakness, s/p PPM, HTN and seizure presented to the ER after he was found slumped over in a chair at the [facility] on day of admission. He was with his step-daughter who left to take her mother to the bathroom and when she returned, he was slumped over in the chair. Initially, patient was unresponsive and then became alert with symptoms of slurred speech and drooling. No seizure activity was noted. Julia Bashir initiated in the ER with [facility] 4. Contact by ER. Patient was not a TPA candidate as symptoms resolved prior to arrival to the ER. Initially, patient unclear why he was in the hospital and can not recall the last thing he remembers. He stated he did not think he took his medications on day of admission and was unaware of his medical problems. CT head was completed and did not show acute changes. Carotid doppler completed, awaiting official report. He was admitted for further eval, repeat CT head completed on 10/31/18, no acute changes noted. Carotid doppler reviewed and no high grade evidence of HD significant stenosis noted. No new deficits overnight. Hydration recommended. Monitor blood pressure maintain normotensive range. On Statin and ASA. Echo reviewed, cardiology follow up. No new deficits overnight. No seizures overnight, Neurologically stable. DVT ppx
[2018-11-05] MEDS: levETIRAcetam 500 MG TABLET (FP) PO SCH ×2 (09:38→21:36)
[2018-11-05] MEDS: PANTOPRAZOLE 40 MG TABLET (FP) PO SCH (09:38)
[2018-11-05] MEDS: LISINOPRIL 5 MG TABLET (FP) PO SCH (09:38)
[2018-11-05] MEDS: ASPIRIN COATED 81 MG TABLET.EC PO SCH (09:38)
[2018-11-05] MEDS: ENOXAPARIN NA (PORCINE) 40 MG/0.4 ML DISP.SYRIN SQ SCH (09:38)
--- NOTE | 2018-11-05 10:22 | PN ---
Progress Note, Physician Chief Complaint: The patient seen and examined in his room. Seems comfortable. No further seizures. Awake and alert. History of Present Illness: No new complaints. Patient tolerates the IV fluids. Maintain good urine output - Current Medication List Current Medications: Active Medications Aspirin (Ecotrin -) 81 mg PO DAILY [facility] Last Admin: 11/05/18 09:38 Dose: 81 mg Enoxaparin Sodium (Lovenox -) 40 mg SQ DAILY [facility] Last Admin: 11/05/18 09:38 Dose: 40 mg Ferrous Sulfate (Feosol -) 325 mg PO TIDCM [facility] Last Admin: 11/05/18 08:35 Dose: 325 mg Sodium Chloride (Normal Saline -) 1,000 mls @ 42 mls/hr IV ASDIR [facility] Last Admin: 11/04/18 16:32 Dose: 42 mls/hr Levetiracetam (Keppra -) 500 mg PO BID [facility] Last Admin: 11/05/18 09:38 Dose: 500 mg Lisinopril (Prinivil) 5 mg PO DAILY [facility] Last Admin: 11/05/18 09:38 Dose: 5 mg Pantoprazole Sodium (Protonix -) 40 mg PO DAILY [facility] Last Admin: 11/05/18 09:38 Dose: 40 mg Rosuvastatin Calcium (Crestor -) 20 mg PO HS [facility] Last Admin: 11/04/18 21:34 Dose: 20 mg - Objective Vital Signs: Vital Signs Temperature 97.8 F 11/05/18 05:18 Pulse Rate 79 11/05/18 05:18 Respiratory Rate 20 11/05/18 05:18 Blood Pressure 128/81 11/05/18 05:18 O2 Sat by Pulse Oximetry (%) 99 11/04/18 21:00 Constitutional: Yes: No Distress, Anxious Eyes: Yes: Conjunctiva Clear HENT: Yes: Atraumatic Neck: Yes: Trachea Midline Cardiovascular: Yes: S1, S2 Respiratory: Yes: CTA Bilaterally, Diminished Gastrointestinal: Yes: Normal Bowel Sounds, Soft Genitourinary: No: CVA Tenderness - Left, CVA Tenderness - Right Musculoskeletal: Yes: Joint Stiffness Edema: No Neurological: Yes: Alert, Oriented Labs: CBC, BMP 11/03/18 06:00 11/05/18 07:00 INR, PTT INR 1.14 (0.83-1.09) H 10/30/18 14:25 Problem List - Problems (1) Hyponatremia Code(s): E87.1 - HYPO-OSMOLALITY AND HYPONATREMIA (2) HTN (hypertension) Code(s): I10 - ESSENTIAL (PRIMARY) HYPERTENSION Qualifiers: Hypertension type: essential hypertension Qualified Code(s): I10 - Essential (primary) hypertension (3) Hypercholesterolemia Code(s): E78.00 - PURE HYPERCHOLESTEROLEMIA, UNSPECIFIED (4) Seizure Code(s): R56.9 - UNSPECIFIED CONVULSIONS (5) Syncope Code(s): R55 - SYNCOPE AND COLLAPSE Assessment/Plan 58yo M with PMH seizure with residual R sided weakness, HTN and seizure presented to the ER unresponsive. Patient has prior history of HTN, hypercholesterolemia, sick sinus syndrome s/p PPM and seizure disorder. He then woke up with slurred speech and drooling. He is unaware of the reason for being in the hospital. CT of head was unremarkable. During the manager medical affairs today, he developed another seizure. Hyponatremia.. . Improving and fairly stable. Concur with cautious infusion of NSS. Mag supplements as needed. Will monitor the Renal/ Electrolytes with you. Thank you. Cori Rosado MD
--- NOTE | 2018-11-05 10:26 | PN ---
Progress Note, Physician History of Present Illness: Sensorium improved. Denies recurrent seizures, tolerating PT. Medtronic ICD interrogation shows multiple appropriate ICD shocks for sustained VT from 10/19-/ 5, more episodes of sustained VT /6-7 terminated by anti-tachycardia pacing. - Current Medication List Current Medications: Active Medications Aspirin (Ecotrin -) 81 mg PO DAILY [facility] Last Admin: 11/05/18 09:38 Dose: 81 mg Enoxaparin Sodium (Lovenox -) 40 mg SQ DAILY [facility] Last Admin: 11/05/18 09:38 Dose: 40 mg Ferrous Sulfate (Feosol -) 325 mg PO TIDCM [facility] Last Admin: 11/05/18 08:35 Dose: 325 mg Sodium Chloride (Normal Saline -) 1,000 mls @ 42 mls/hr IV ASDIR [facility] Last Admin: 11/04/18 16:32 Dose: 42 mls/hr Levetiracetam (Keppra -) 500 mg PO BID [facility] Last Admin: 11/05/18 09:38 Dose: 500 mg Lisinopril (Prinivil) 5 mg PO DAILY [facility] Last Admin: 11/05/18 09:38 Dose: 5 mg Pantoprazole Sodium (Protonix -) 40 mg PO DAILY [facility] Last Admin: 11/05/18 09:38 Dose: 40 mg Rosuvastatin Calcium (Crestor -) 20 mg PO HS [facility] Last Admin: 11/04/18 21:34 Dose: 20 mg - Objective Vital Signs: Vital Signs Temperature 97.8 F 11/05/18 05:18 Pulse Rate 79 11/05/18 05:18 Respiratory Rate 20 11/05/18 05:18 Blood Pressure 128/81 11/05/18 05:18 O2 Sat by Pulse Oximetry (%) 99 11/04/18 21:00 Constitutional: Yes: No Distress, Calm Neck: Yes: Supple Cardiovascular: Yes: Regular Rate and Rhythm Respiratory: Yes: Regular, Diminished Gastrointestinal: Yes: Normal Bowel Sounds, Soft Edema: No Labs: CBC, BMP 11/03/18 06:00 11/05/18 07:00 INR, PTT INR 1.14 (0.83-1.09) H 10/30/18 14:25 Problem List - Problems (1) HTN (hypertension) Code(s): I10 - ESSENTIAL (PRIMARY) HYPERTENSION Qualifiers: Hypertension type: essential hypertension Qualified Code(s): I10 - Essential (primary) hypertension (2) Hypercholesterolemia Code(s): E78.00 - PURE HYPERCHOLESTEROLEMIA, UNSPECIFIED (3) Hyponatremia Code(s): E87.1 - HYPO-OSMOLALITY AND HYPONATREMIA (4) Seizure Code(s): R56.9 - UNSPECIFIED CONVULSIONS (5) Sick sinus syndrome Code(s): I49.5 - SICK SINUS SYNDROME (6) Sustained VT (ventricular tachycardia) Code(s): I47.2 - VENTRICULAR TACHYCARDIA (7) ICD (implantable cardioverter-defibrillator) in place Code(s): Z95.810 - PRESENCE OF AUTOMATIC (IMPLANTABLE) CARDIAC DEFIBRILLATOR Assessment/Plan 11/04/2018 Echo: Normal LV size and fxn LVEF 60%, grade II diastolic dysfxn, mild-mod cLVH, normal RV fxn, pacer seen, normal biatrial sizes, mild-mod MR, mild TR, OR, tr AR 1. Altered mental status with underlying seizure disorder 2. HTN 3. Hypercholesterolemia 4. Sick sinus syndrome, sustained VT s/p ICD 5. Hyponatremia resolving PLAN: 1. Continue ASA 81 qd, Crestor 20 qhs, lisinopril 5 qd and add Toprol XL 25 qd as hemodynamics tolerate 2. Continue Keppra and Neuro follow up 3. DVT prophylaxis
[2018-11-05 12:39] LABS: MAGNESIUM 1.8 mg/dL (1.8-2.4)
--- NOTE | 2018-11-05 13:00 | PN ---
Progress Note, OPERATIONS PROFESSIONAL - Note Progress Note: Selected Entries 11/03/18 11/03/18 11/03/18 02:00 06:00 09:00 Breakfast 100% Lunch Supper Temperature 97.7 F 98.1 F 11/03/18 11/03/18 11/03/18 09:19 13:00 18:00 Breakfast Lunch 100% Supper Temperature 98.4 F 98.1 F 97.5 F L 11/03/18 11/03/18 11/04/18 19:48 22:00 02:00 Breakfast Lunch Supper 100% Temperature 97.2 F L 97.9 F 11/04/18 11/04/18 06:37 08:04 Breakfast Lunch Supper Temperature 98.2 F 98 F Laboratory Tests 11/03/18 06:00 WBC 6.7 Reviewed with dietary, Whole, soft easy to chew foods, chopped meats..
[2018-11-05] MEDS: metoPROLOL SUCCINATE 25 MG TAB.SR.24H (FP) PO SCH (15:32)
--- NOTE | 2018-11-05 16:51 | PN ---
Physical Exam: SUBJECTIVE: Patient seen and examined at the bedside. in no acute distress. feels well. OBJECTIVE: spoke to who asked for patient to have PT at home pacemaker to be interrogated discharge planning Vital Signs Period Temp Pulse Resp BP Sys/Evangelista Pulse Ox Last 24 Hr 97.5 F-98.0 F 72-92 16-20 123-154/76-109 99-99 GENERAL: The patient is awake, alert, forgetful. unsure if his mentation is at his baseline. HEAD: Normal with no signs of trauma. EYES: PERRL, extraocular movements intact, sclera anicteric, conjunctiva clear. No ptosis. ENT: Ears normal, nares patent, oropharynx clear without exudates, moist mucous membranes. NECK: Trachea midline, full range of motion, supple. HEART: Regular rate and rhythm,90s - tachy 140s this morning at 5am ABDOMEN: Soft, nontender, nondistended, normoactive bowel sounds, no guarding, no rebound, no hepatosplenomegaly, no masses. EXTREMITIES: no edema. NEUROLOGICAL: Normal speech, upper ext weakness, right>left PSYCH: Normal mood, normal affect. SKIN: Warm, dry, normal turgor, no rashes or lesions noted Laboratory Results - last 24 hr 11/04/18 11/05/18 06:30 07:00 Sodium 131 L Potassium 4.3 Chloride 101 Carbon Dioxide 23 Anion Gap 6 L BUN 7 Creatinine 0.6 Creat Clearance w eGFR > 60 Random Glucose 90 Calcium 8.6 Magnesium 1.8 Total Bilirubin 0.4 AST 14 L ALT 14 Alkaline Phosphatase 55 Total Protein 6.6 Albumin 3.0 L Free T3 2.4 Total T3 86.00 Active Medications Generic Name Dose Route Start Last Admin Trade Name Freq PRN Reason Stop Dose Admin Aspirin 81 mg 11/01/18 12:30 11/05/18 09:38 Ecotrin - PO 81 mg DAILY ELEAZAR Administration Enoxaparin Sodium 40 mg 10/31/18 10:00 11/05/18 09:38 Lovenox - SQ 40 mg DAILY [facility]LE[facility] Administration Ferrous Sulfate 325 mg 11/03/18 17:30 11/05/18 13:41 Feosol - PO 325 mg TIDCM ELEAZ[facility] Administration Sodium Chloride 1,000 mls @ 42 mls/hr 11/04/18 15:40 11/04/18 16:32 Normal Saline - IV 42 mls/hr ASDIR ELEAZAR Administration Levetiracetam 500 mg 11/03/18 10:00 11/05/18 09:38 Keppra - PO 500 mg BID ELE[facility] Administration Lisinopril 5 mg 11/05/18 10:00 11/05/18 09:38 Prinivil PO 5 mg DAILY ELE[facility] Administration Metoprolol Succinate 25 mg 11/05/18 14:45 11/05/18 15:32 Toprol Xl - PO 25 mg DAILY ELE[facility] Administration Pantoprazole Sodium 40 mg 11/05/18 10:00 11/05/18 09:38 Protonix - PO 40 mg DAILY [facility] Administration Rosuvastatin Calcium 20 mg 10/30/18 22:00 11/04/18 21:34 Crestor - PO 20 mg HS ELEAZAR Administration ASSESSMENT/PLAN: Patient is a 58 year old male with a significant past medical history of 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 He presented to the ER after he was found slumped over in a chair at the [facility] , was initially unresponsive and then became alert. +drooling with slurred speech. A code osman was initiated in the Ed. He was not a Tpa candidate as symptoms resolved prior to arrival to the ED. Neuro: Acute metabolic enceph. resolved. secondary to seizure vs. CVA. head ct negative for acute process. shows chronic left temporal and right frontal subcoritcal infarcts. Mental status improving and appears to be at his baseline. He is unable to get an mri of brain 2/2 to [facility]. Neuro consulted and following. Head CT negative for acute bleed. PT evaluation. may need short term rehab. Seizure: no further seizures. on keppra 500mg bid. Heme: Microcytic anemia. monitor cbc daily. remains low stable. check iron studies. no signs of bleeding. Will need outpatient GI follow up for possible colonoscopy. Will start on PPI. Card: Sick sinus syndrome s/p PPM. needs to be interrogated. Hypertension: started on home dose of lisinopril daily. Renal: Hyponatremia: Sodium dropping from labs done here 2 days prior. corrected with NS, rate lowered to 40cc/hr. renal following. fen tolerating po monitor labs prophy lovenox Visit type - Emergency Visit Emergency Visit: Yes ED Registration Date: 10/30/18 Care time: The patient presented to the Emergency Department on the above date and was hospitalized for further evaluation of their emergent condition. - New Patient This patient is new to me today: No - Critical Care Critical Care patient: No - Discharge Referral Referred to [facility] No
[2018-11-05] MEDS: SODIUM CHLORIDE 1,000 ML IV SCH (17:09)
[2018-11-05] MEDS: ROSUVASTATIN CA 20 MG TABLET (FP) PO SCH (21:36)
[2018-11-06 08:37] LABS: BASO % 0.9 % (0-2.0); HEMOGLOBIN 10.1 GM/dL (11.7-16.9); LYMPH % 24.9 % (8-40); MCH 25.8 pg (25.7-33.7); MCHC 32.7 g/dl (32.0-35.9); MEAN CELL VOLUME 78.8 fl (80-96); MEAN PLT VOLUME 7.7 fl (7.5-11.1); MONO % 10.6 % (3.8-10.2); NEUT % 60.6 % (42.8-82.8); PLATELET COUNT 257 K/MM3 (134-434); RBC 3.93 M/mm3 (4.00-5.60); RDW 18.2 % (11.9-15.9); WHITE BLOOD COUNT 3.6 K/mm3 (4.0-10.0)
[2018-11-06] MEDS: FERROUS SO4 325 MG TABLET (FP) PO SCH ×3 (08:55→18:03)
[2018-11-06] MEDS: PANTOPRAZOLE 40 MG TABLET (FP) PO SCH (09:01)
[2018-11-06] MEDS: metoPROLOL SUCCINATE 25 MG TAB.SR.24H (FP) PO SCH (09:01)
[2018-11-06] MEDS: ASPIRIN COATED 81 MG TABLET.EC PO SCH (09:01)
[2018-11-06] MEDS: LISINOPRIL 5 MG TABLET (FP) PO SCH (09:01)
[2018-11-06] MEDS: levETIRAcetam 500 MG TABLET (FP) PO SCH (09:01)
[2018-11-06] MEDS: ENOXAPARIN NA (PORCINE) 40 MG/0.4 ML DISP.SYRIN SQ SCH (09:02)
[2018-11-06 09:11] LABS: ALBUMIN 3.2 g/dl (3.4-5.0); ALK PHOS 63 U/L (45-117); ANION GAP 7 MMOL/L (8-16); BILIRUBIN,TOTAL 0.3 mg/dL (0.2-1); BLOOD UREA NITROGEN 7 mg/dL (7-18); CALCIUM 8.4 mg/dL (8.5-10.1); CHLORIDE 98 mmol/L (98-107); CO2 23 mmol/L (21-32); CREATININE 0.7 mg/dL (0.55-1.3); GLUCOSE,RANDOM 89 mg/dL (74-106); POTASSIUM 4.6 mmol/L (3.5-5.1); SGOT/AST 13 U/L (15-37); SGPT/ALT 14 U/L (13-61); SODIUM 129 mmol/L (136-145); TOT PROT 7.2 g/dl (6.4-8.2)
--- NOTE | 2018-11-06 10:13 | PN ---
Progress Note (short form) - Note Progress Note: Neurology CHIEF COMPLAINT:AMS/Slurred speech PCP: [facility] HISTORY OF PRESENT ILLNESS: 58yo M with PMH seizure with residual R sided weakness, s/p PPM, HTN and seizure presented to the ER after he was found slumped over in a chair at the [facility] on day of admission. He was with his step-daughter who left to take her mother to the bathroom and when she returned, he was slumped over in the chair. Initially, patient was unresponsive and then became alert with symptoms of slurred speech and drooling. No seizure activity was noted. Code Bashir initiated in the ER with [facility] 4. Contact by ER. Patient was not a TPA candidate as symptoms resolved prior to arrival to the ER. Initially, patient unclear why he was in the hospital and can not recall the last thing he remembers. He stated he did not think he took his medications on day of admission and was unaware of his medical problems. CT head was completed and did not show acute changes. He was admitted for further eval, repeat CT head completed on 10/31/18, no acute changes noted but chronic infarcts. Carotid doppler reviewed and no high grade evidence of HD significant stenosis noted. No new deficits overnight. No seizures overnight, Echo reviewed, normal LV function, EF 60%. Speech/swallow note reviewed. Neurologically stable and seizure free. Remains on Keppra with good seizure control. Allergies Penicillins Allergy (Severe, Verified 10/30/18 14:35) Difficulty Breathing Active Medications Aspirin (Ecotrin -) 81 mg PO DAILY [facility] Last Admin: 11/06/18 09:01 Dose: 81 mg Enoxaparin Sodium (Lovenox -) 40 mg SQ DAILY [facility] Last Admin: 11/06/18 09:02 Dose: 40 mg Ferrous Sulfate (Feosol -) 325 mg PO TIDCM [facility] Last Admin: 11/06/18 08:55 Dose: 325 mg Sodium Chloride (Normal Saline -) 1,000 mls @ 42 mls/hr IV ASDIR [facility] Last Admin: 11/05/18 17:09 Dose: 42 mls/hr Levetiracetam (Keppra -) 500 mg PO BID [facility] Last Admin: 11/06/18 09:01 Dose: 500 mg Lisinopril (Prinivil) 5 mg PO DAILY [facility] Last Admin: 11/06/18 09:01 Dose: 5 mg Metoprolol Succinate (Toprol Xl -) 25 mg PO DAILY [facility] Last Admin: 11/06/18 09:01 Dose: 25 mg Pantoprazole Sodium (Protonix -) 40 mg PO DAILY [facility] Last Admin: 11/06/18 09:01 Dose: 40 mg Rosuvastatin Calcium (Crestor -) 20 mg PO HS [facility] Last Admin: 11/05/18 21:36 Dose: 20 mg PHYSICAL EXAMINATION Vital Signs Period Temp Pulse Resp BP Sys/Evangelista Pulse Ox Last 24 Hr 97.5 F-98.4 F 69-87 16-18 107-131/61-77 98 GENERAL: A&O x2 (self and location), in no acute distress. HEAD: Normal with no signs of trauma. EYES: Pupils equal, round and reactive to light, extraocular movements intact, sclera anicteric, conjunctiva clear. No lid lag. EARS, NOSE, THROAT: Ears normal, nares patent, oropharynx clear without exudates. Moist mucous membranes. poor oral dentition NECK: Normal range of motion, supple without lymphadenopathy, JVD, or masses. LUNGS: Breath sounds equal, clear to auscultation bilaterally. No wheezes, and no crackles. No accessory muscle use. HEART: Regular rate and rhythm, normal S1 and S2 without murmur, rub or gallop. ABDOMEN: Soft, nontender, not distended, normoactive bowel sounds, no guarding, no rebound, no masses. No hepatomegaly or splenomegaly. MUSCULOSKELETAL: Normal range of motion at all joints. No bony deformities or tenderness. No CVA tenderness. UPPER EXTREMITIES: 2+ pulses, warm, well-perfused. No cyanosis. No clubbing. No peripheral edema. LOWER EXTREMITIES: 2+ pulses, warm, well-perfused. No calf tenderness. No peripheral edema. NEUROLOGICAL: Cranial nerves II-XII intact. +asymmetric smile with nasolabrial flattening. slurred speech strength 4/5 RUE 5/5 all remaining extremities sensation grossly intact. neg pronator drift/dysmetria. gait testing deferred PSYCHIATRIC: Cooperative. Good eye contact. Appropriate mood and affect. SKIN: Warm, dry, normal turgor, no rashes or lesions noted, normal capillary refill. CBCD WBC 3.6 K/mm3 (4.0-10.0) L 11/06/18 08:05 RBC 3.93 M/mm3 (4.00-5.60) L 11/06/18 08:05 Hgb 10.1 GM/dL (11.7-16.9) L 11/06/18 08:05 Hct 31.0 % (35.4-49) L 11/06/18 08:05 MCV 78.8 fl (80-96) L 11/06/18 08:05 MCHC 32.7 g/dl (32.0-35.9) 11/06/18 08:05 RDW 18.2 % (11.9-15.9) H 11/06/18 08:05 Plt Count 257 K/MM3 (134-434) 11/06/18 08:05 MPV 7.7 fl (7.5-11.1) 11/06/18 08:05 CMP Sodium 129 mmol/L (136-145) L 11/06/18 08:05 Potassium 4.6 mmol/L (3.5-5.1) 11/06/18 08:05 Chloride 98 mmol/L (98-107) 11/06/18 08:05 Carbon Dioxide 23 mmol/L (21-32) 11/06/18 08:05 Anion Gap 7 MMOL/L (8-16) L 11/06/18 08:05 BUN 7 mg/dL (7-18) 11/06/18 08:05 Creatinine 0.7 mg/dL (0.55-1.3) 11/06/18 08:05 Creat Clearance w eGFR > 60 (>60) 11/06/18 08:05 Random Glucose 89 mg/dL (74-106) 11/06/18 08:05 Calcium 8.4 mg/dL (8.5-10.1) L 11/06/18 08:05 Total Bilirubin 0.3 mg/dL (0.2-1) 11/06/18 08:05 AST 13 U/L (15-37) L 11/06/18 08:05 ALT 14 U/L (13-61) 11/06/18 08:05 Alkaline Phosphatase 63 U/L (45-117) 11/06/18 08:05 Total Protein 7.2 g/dl (6.4-8.2) 11/06/18 08:05 Albumin 3.2 g/dl (3.4-5.0) L 11/06/18 08:05 CARDIAC ENZYMES Creatine Kinase 29 U/L (26-308) 10/30/18 21:07 Troponin I < 0.02 ng/ml (0.00-0.05) 10/30/18 21:[address] (initial) - completed, reviewed Carotid Doppler - completed Head CT (repeat) - completed ASSESSMENT/PLAN: 58yo M with PMH seizure with residual R sided weakness, s/p PPM, HTN and seizure presented to the ER after he was found slumped over in a chair at the [facility] on day of admission. He was with his step-daughter who left to take her mother to the bathroom and when she returned, he was slumped over in the chair. Initially, patient was unresponsive and then became alert with symptoms of slurred speech and drooling. No seizure activity was noted. Julia Bashir initiated in the ER with [facility] 4. Contact by ER. Patient was not a TPA candidate as symptoms resolved prior to arrival to the ER. Initially, patient unclear why he was in the hospital and can not recall the last thing he remembers. He stated he did not think he took his medications on day of admission and was unaware of his medical problems. CT head was completed and did not show acute changes. Carotid doppler completed, awaiting official report. He was admitted for further eval, repeat CT head completed on 10/31/18, no acute changes noted. Carotid doppler reviewed and no high grade evidence of HD significant stenosis noted. No new deficits overnight. Hydration recommended. Monitor blood pressure maintain normotensive range. On Statin and ASA. Echo reviewed, cardiology follow up. No new deficits overnight. No seizures overnight, Neurologically stable. DVT ppx
--- NOTE | 2018-11-06 10:26 | PN ---
Progress Note, Physician History of Present Illness: Sensorium improved. Denies recurrent seizures, tolerating PT. Medtronic ICD interrogation shows multiple appropriate ICD shocks for sustained VT from 10/19-10/20, more episodes of sustained VT 6-7 terminated by anti-tachycardia pacing. Patient does not recall shocks. - Current Medication List Current Medications: Active Medications Aspirin (Ecotrin -) 81 mg PO DAILY [facility] Last Admin: 11/06/18 09:01 Dose: 81 mg Enoxaparin Sodium (Lovenox -) 40 mg SQ DAILY [facility] Last Admin: 11/06/18 09:02 Dose: 40 mg Ferrous Sulfate (Feosol -) 325 mg PO TIDCM [facility] Last Admin: 11/06/18 08:55 Dose: 325 mg Sodium Chloride (Normal Saline -) 1,000 mls @ 42 mls/hr IV ASDIR [facility] Last Admin: 11/05/18 17:09 Dose: 42 mls/hr Levetiracetam (Keppra -) 500 mg PO BID [facility] Last Admin: 11/06/18 09:01 Dose: 500 mg Lisinopril (Prinivil) 5 mg PO DAILY [facility] Last Admin: 11/06/18 09:01 Dose: 5 mg Metoprolol Succinate (Toprol Xl -) 25 mg PO DAILY [facility] Last Admin: 11/06/18 09:01 Dose: 25 mg Pantoprazole Sodium (Protonix -) 40 mg PO DAILY [facility] Last Admin: 11/06/18 09:01 Dose: 40 mg Rosuvastatin Calcium (Crestor -) 20 mg PO HS [facility] Last Admin: 11/05/18 21:36 Dose: 20 mg - Objective Vital Signs: Vital Signs Temperature 97.8 F 11/06/18 06:00 Pulse Rate 77 11/06/18 06:00 Respiratory Rate 18 11/06/18 06:00 Blood Pressure 107/61 11/06/18 06:00 O2 Sat by Pulse Oximetry (%) 98 11/05/18 21:00 Constitutional: Yes: No Distress, Calm, Thin Neck: Yes: Supple Cardiovascular: Yes: Regular Rate and Rhythm Respiratory: Yes: Regular, CTA Bilaterally Gastrointestinal: Yes: Normal Bowel Sounds, Soft Edema: No Labs: CBC, BMP 11/06/18 08:05 11/06/18 08:05 INR, PTT INR 1.14 (0.83-1.09) H 10/30/18 14:25 - ....Imaging EKG: Report Reviewed (Tele: Occ paced) Problem List - Problems (1) HTN (hypertension) Code(s): I10 - ESSENTIAL (PRIMARY) HYPERTENSION Qualifiers: Hypertension type: essential hypertension Qualified Code(s): I10 - Essential (primary) hypertension (2) Hypercholesterolemia Code(s): E78.00 - PURE HYPERCHOLESTEROLEMIA, UNSPECIFIED (3) Hyponatremia Code(s): E87.1 - HYPO-OSMOLALITY AND HYPONATREMIA (4) Seizure Code(s): R56.9 - UNSPECIFIED CONVULSIONS (5) Sick sinus syndrome Code(s): I49.5 - SICK SINUS SYNDROME (6) Sustained VT (ventricular tachycardia) Code(s): I47.2 - VENTRICULAR TACHYCARDIA (7) ICD (implantable cardioverter-defibrillator) in place Code(s): Z95.810 - PRESENCE OF AUTOMATIC (IMPLANTABLE) CARDIAC DEFIBRILLATOR Assessment/Plan 11/04/2018 Echo: Normal LV size and fxn LVEF 60%, grade II diastolic dysfxn, mild-mod cLVH, normal RV fxn, pacer seen, normal biatrial sizes, mild-mod MR, mild TR, NV, tr AR 1. Altered mental status with underlying seizure disorder 2. HTN 3. Hypercholesterolemia 4. Sick sinus syndrome, sustained VT s/p ICD 5. Hyponatremia resolving PLAN: 1. Continue ASA 81 qd, Crestor 20 qhs, lisinopril 5 qd and added Toprol XL 25 qd as hemodynamics tolerate 2. Continue Keppra and Neuro follow up 3. DVT prophylaxis
[2018-11-06] MEDS ORDERED: SODIUM CHLORIDE 1 GM TABLET PO SCH (10:45)
--- NOTE | 2018-11-06 10:46 | PN ---
Progress Note, Physician Chief Complaint: The patient seen and examined in his room. Seems quite comfortable. No further seizures. Awake and alert. Had walked on the [address] earlier. Maintains good urine output. History of Present Illness: No new complaints.ON IV NSS. Maintain good urine output - Current Medication List Current Medications: Active Medications Aspirin (Ecotrin -) 81 mg PO DAILY [facility] Last Admin: 11/06/18 09:01 Dose: 81 mg Enoxaparin Sodium (Lovenox -) 40 mg SQ DAILY [facility] Last Admin: 11/06/18 09:02 Dose: 40 mg Ferrous Sulfate (Feosol -) 325 mg PO TIDCM [facility] Last Admin: 11/06/18 08:55 Dose: 325 mg Levetiracetam (Keppra -) 500 mg PO BID [facility] Last Admin: 11/06/18 09:01 Dose: 500 mg Lisinopril (Prinivil) 5 mg PO DAILY [facility] Last Admin: 11/06/18 09:01 Dose: 5 mg Metoprolol Succinate (Toprol Xl -) 25 mg PO DAILY [facility] Last Admin: 11/06/18 09:01 Dose: 25 mg Pantoprazole Sodium (Protonix -) 40 mg PO DAILY [facility] Last Admin: 11/06/18 09:01 Dose: 40 mg Rosuvastatin Calcium (Crestor -) 20 mg PO HS [facility] Last Admin: 11/05/18 21:36 Dose: 20 mg Sodium Chloride (Sodium Chloride Tablet -) 1 gm PO DAILY [facility] - Objective Vital Signs: Vital Signs Temperature 97.7 F 11/06/18 10:00 Pulse Rate 74 11/06/18 10:00 Respiratory Rate 18 11/06/18 10:00 Blood Pressure 147/93 11/06/18 10:00 O2 Sat by Pulse Oximetry (%) 98 11/05/18 21:00 Constitutional: Yes: No Distress, Anxious Eyes: Yes: Conjunctiva Clear HENT: Yes: Normocephalic Cardiovascular: Yes: S1, S2 Respiratory: Yes: CTA Bilaterally. No: Rales, Rhonchi Gastrointestinal: Yes: Normal Bowel Sounds, Soft Genitourinary: No: Bladder Distention, CVA Tenderness - Left, CVA Tenderness - Right, Hematuria Edema: No Labs: CBC, BMP 11/06/18 08:05 11/06/18 08:05 INR, PTT INR 1.14 (0.83-1.09) H 10/30/18 14:25 Problem List - Problems (1) Hyponatremia Code(s): E87.1 - HYPO-OSMOLALITY AND HYPONATREMIA (2) HTN (hypertension) Code(s): I10 - ESSENTIAL (PRIMARY) HYPERTENSION Qualifiers: Hypertension type: essential hypertension Qualified Code(s): I10 - Essential (primary) hypertension (3) Hypercholesterolemia Code(s): E78.00 - PURE HYPERCHOLESTEROLEMIA, UNSPECIFIED (4) Seizure Code(s): R56.9 - UNSPECIFIED CONVULSIONS (5) Syncope Code(s): R55 - SYNCOPE AND COLLAPSE Assessment/Plan 58yo M with PMH seizure with residual R sided weakness, HTN and seizure presented to the ER unresponsive. Patient has prior history of HTN, hypercholesterolemia, sick sinus syndrome s/p PPM and seizure disorder. He then woke up with slurred speech and drooling. He is unaware of the reason for being in the hospital. CT of head was unremarkable. During the [employer] today, he developed another seizure. Hyponatremia.. . Serum Na dropped to 129mEq today. Will DC IV fluids. Start on Sodium Chloride Tabs. Advised the patient to restrict oral water to no more than 1000 ml/ 24 hrs. Mag supplements as needed. Will monitor the Renal/ Electrolytes with you. Thank you. Cori Rosado MD
[2018-11-06] MEDS ORDERED: PT OWN MED DRAWER 7, Y5N ONE (11:30)
--- NOTE | 2018-11-06 11:51 | PN ---
Progress Note, ACADEMIC COMPUTING DIRECTOR - Note Progress Note: Selected Entries 11/06/18 11/06/18 11/06/18 02:27 06:00 08:40 Breakfast 100% Diet Tolerated Well Temperature 97.5 F L 97.8 F 11/06/18 10:00 Breakfast Diet Tolerated Temperature 97.7 F Laboratory Tests 11/06/18 08:05 WBC 3.6 L On Dysphagia whole with chopped meat. Poor dentition.Eats slowly with good tolerance.
--- NOTE | 2018-11-06 14:01 | DS ---
Physical Exam: SUBJECTIVE: Patient seen and examined at the bedside. his is present. he is for discharge home with outpatient follow up. He does not have a PCP in [place] (has one in [place]), therefore, I assigned one for him affiliated with our hospital and one who is accepting new patients. patient is scheduled to see Dr. Funes on November 12 at 1pm. OBJECTIVE: No neuro deficits noted. patient is on a soft diet due to his poor dentation. will need outpatient followup. cleared for discharge. discussed the importance of follow up appointments. Vital Signs Period Temp Pulse Resp BP Sys/Evangelista Pulse Ox Last 24 Hr 97.5 F-98.4 F 69-77 16-18 107-147/61-93 96-98 PHYSICAL EXAM GENERAL: The patient is awake, alert, forgetful. as per , mentation is back to baseline. HEAD: Normal with no signs of trauma. EYES: PERRL, extraocular movements intact, sclera anicteric, conjunctiva clear. No ptosis. ENT: Ears normal, nares patent, oropharynx clear without exudates, moist mucous membranes. NECK: Trachea midline, full range of motion, supple. HEART: Regular rate and rhythm,90s ABDOMEN: Soft, nontender, nondistended, normoactive bowel sounds, no guarding, no rebound, no hepatosplenomegaly, no masses. EXTREMITIES: no edema. NEUROLOGICAL: Normal slow speech-at baseline per . upper ext weakness, right >left PSYCH: Normal mood, normal affect. SKIN: Warm, dry, normal turgor, no rashes or lesions noted LABS Laboratory Results - last 24 hr 11/06/18 11/06/18 08:05 08:05 WBC 3.6 L RBC 3.93 L Hgb 10.1 L Hct 31.0 L MCV 78.8 L MCH 25.8 MCHC 32.7 RDW 18.2 H Plt Count 257 MPV 7.7 Absolute Neuts (auto) 2.2 Neutrophils % 60.6 D Lymphocytes % 24.9 D Monocytes % 10.6 H Eosinophils % 3.0 D Basophils % 0.9 Nucleated RBC % 0 Sodium 129 L Potassium 4.6 Chloride 98 Carbon Dioxide 23 Anion Gap 7 L BUN 7 Creatinine 0.7 Creat Clearance w eGFR > 60 Random Glucose 89 Calcium 8.4 L Total Bilirubin 0.3 AST 13 L ALT 14 Alkaline Phosphatase 63 Total Protein 7.2 Albumin 3.2 L HOSPITAL COURSE: Date of Admission:10/30/18 Date of Discharge: 11/06/18 Patient is a 58 year old male with a significant past medical history of seizure and cva with residual right sided weakness, pacemaker and hypertension. He presented to the ER on 10/30/2018 after he was found slumped over in a chair at the [facility], was initially unresponsive and then became alert. +drooling with slurred speech. A code osman was initiated in the ED. He was not a TPA candidate as symptoms resolved prior to arrival to the ED. PROBLEM LIST: Neurology: Acute metabolic enceph. resolved. - his mentation is back to baseline. He likely had a seizure episode secondary to medication non compliance. No evidence of CVA per neurologist. Head CT negative. Unable to get an MRI due to pacemaker. Imaging: head ct negative for acute process. shows chronic left temporal and right frontal subcoritcal infarcts. Mental status improving and appears to be at his baseline. EEG to be done as an outpatient. Will need physical therapy at home and this is being set up with [facility]. Seizure: Had a seizure episode during his hospital stay on 11/03/2018. His Keppra dose was increased to Keppra 500mg twice per day. No further seizures. Mentation back to baseline. He has been followed by a neurologist and is cleared for discharge home. Outpatient follow up with Dr. Powers. Hematology: Microcytic anemia. Low stable mycrocytic anemia. Will need a colonoscopy as an outpatient for monitoring. No signs of bleeding currently. Continue on Protonix 40mg daily. Cardiology: Sick sinus syndrome s/p PPM. Per Cardiology notes: his [employer] ICD interrogation shows multiple appropriate ICD shocks for sustained VT from 10/19-10/20, more episodes of sustained VT 6-7 terminated by anti-tachycardia pacing. 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 Follow up with Dr Gannon as an outpatient. Hypertension: started on home dose of lisinopril daily. controlled on metoprolol Renal: Hyponatremia: Sodium levels dropped during hospital stay. He was treated with Normal Saline fluids. Seen by renal and cleared for discharge with Sodium 1mg tablets. He will need repeat blood work. Appointment made for his to follow up with his new PCP. full code. discharge home with follow ups. Patient and informed. Minutes to complete discharge: 60 Discharge Summary Reason For Visit: SYNCOPE Current Active Problems HTN (hypertension) (Acute) Hypercholesterolemia (Acute) Hyponatremia (Acute) ICD (implantable cardioverter-defibrillator) in place (Acute) Seizure (Acute) Sick sinus syndrome (Acute) Sustained VT (ventricular tachycardia) (Acute) Syncope (Acute) Condition: Improved - Instructions Diet, Activity, Other Instructions: Mr. Tobias: You were admitted for possible seizure and you will be discharged home today. You were seen by the neurologist during your hospital stay as well as the real estate loan processor. Here are our recommendations SEIZURE: We have increased your home dose of Keppra to 500mg twice per day. Take this medication at 8am and 8pm without skipping doses. Please make a follow up appointment with Dr. Powers within 2 weeks of discharge as your Keppra may need to be adjusted. You will further follow up testing. CARDIOLOGY We have interrogated your pace maker during your hospitalization. We recommend that you see Dr. Gannon within 2 weeks for a follow up appointment. Continue the cardiac medications as directed in your discharge instructions. RENAL: Hyponatremia: your serum sodium was noted to be low during your hospital stay and we started you on Sodium tablets 1 gram daily. You will need to have your blood drawn to assure that your levels are more stable. While you were here, Dr. Rosado monitored your kidney function as well as your blood electrolytes. I have made a follow up appointment for you with a new primary care doctor that accepts your insurance. Dr. Gross is located at [address] [place] [address]. Please bring your insurance card with you November 12, 2018 - @ 1 pm bring insurance card - YOU MUST PUT DOWN DR GROSS YOUR PRIMARY CARE DOCTOR BEFORE YOU SEE HIM - therefore call your insurance company and inform them. FOLLOW UPS Dr. Powers within 2 weeks (neurology) Dr. Adame within 2-3 weeks (cardiology) Dr. Girard within 2-3 weeks (renal doctor) Thank you for allowing us to care for you. Referrals: Malvin Powers MD [Staff Physician] - 2 Weeks Cori Rosado MD [Staff Physician] - 1 Week Negrita Funes MD [Staff Physician] - (feb 28 - @ 1pm bring insurance card - MUST PUT DOWN DR GROSS YOUR PRIMARY CARE DOCTOR BEFORE YOU SEE HIM) Disposition: [facility]/HOME HEALTH CARE - Home Medications Comprehensive Discharge Medication List: Ambulatory Orders Aspirin [ASA -] 81 mg PO DAILY 10/30/18 Folic Acid 1 mg PO DAILY 10/30/18 Aspirin Coated [Ecotrin -] 81 mg PO DAILY #30 tablet.ec 11/06/18 Ferrous Sulfate [Feosol] 325 mg PO TIDCM #90 ud 11/06/18 Lisinopril [Prinivil] 5 mg PO DAILY #0 tablet 11/06/18 Lisinopril [Prinivil] 5 mg PO DAILY #30 tablet 11/06/18 Metoprolol Succinate [Toprol XL -] 25 mg PO DAILY #30 tab.sr.24h 11/06/18 Pantoprazole Sodium [Protonix -] 40 mg PO DAILY #30 tablet.ec 11/06/18 Rosuvastatin [Crestor -] 20 mg PO HS #30 tablet 11/06/18 Sodium Chloride Tablet - 1 gm PO DAILY #30 tablet 11/06/18 levETIRAcetam [Keppra -] 500 mg PO BID #60 tablet 11/06/18 This patient is new to me today: No Emergency Visit: Yes ED Registration Date: 10/30/18 Care time: The patient presented to the Emergency Department on the above date and was hospitalized for further evaluation of their emergent condition. Critical Care patient: No - Discharge Referral Referred to [facility] No
[2018-11-06 18:32] VITALS: BP 119/69; PULSE 71; TEMP 97.3
== END 2018-11-06 20:57 | disposition home health service (06) | DRG 53 ==
LOC: JER 13:43 → JERBED 15:24 → J4S 23:43
PROVIDERS: ADMIT Internal Medicine; ATTEND Nurse Practitioner Family
DX: G40.909 Epilepsy, unspecified, not intractable, without status epilepticus (principal); G93.41 Metabolic encephalopathy; I10 Essential (primary) hypertension; D64.9 Anemia, unspecified; E87.1 Hypo-osmolality and hyponatremia; E78.00 Pure hypercholesterolemia, unspecified; R55 Syncope and collapse; I49.5 Sick sinus syndrome; R53.1 Weakness; Z95.0 Presence of cardiac pacemaker; Z86.73 Personal history of transient ischemic attack (TIA), and cerebral infarction without residual deficits; Z88.0 Allergy status to penicillin
CPT/HCPCS: 36415; 70450-TC; 71045-TC-FY; 73130-TC-RT-FY; 80053; 81003; 82465; 82550; 82728; 82962; 83540; 83550; 83718; 83721; 83735; 83930; 83935; 84100; 84300; 84443; 84478; 84480; 84481; 84484; 84550; 85025; 85610; 93005; 93010; 93306-TC; 93880-TC; 97116-GP; 97162-GP; 99285-25; J7030